=== PATIENT | male | born 1960 | race Caucasian/White ===

== ENCOUNTER 2016-11-21 14:45 | Emergency (ER) | payer MEDICARE, MEDICAID ==
[~2016-11-21] VITALS: Ht 167.6 cm; Wt 73.0 kg
[~2016-11-21 14:45] MED LIST: ARIP20TA2; ASPI-1159; COG2; DEPAK2 PO; DES150; DIGO250T81; ERGO400C; FOLI-43; GLIP5TAB12; HAL2; LORA2TAB95; TEMA30CA5; [UNRECOGNIZED DRUG - CODE]; [UNRECOGNIZED DRUG - OTHER]; [UNRECOGNIZED DRUG - OTHER]
[2016-11-21 14:52] VITALS: BP 148/61
== END 2016-11-21 19:16 | disposition left against medical advice (07) ==
LOC: ER 18:50
DX: Z53.21 Procedure and treatment not carried out due to patient leaving prior to being seen by health care provider (principal)
CPT/HCPCS: 82962

== ENCOUNTER 2019-10-11 16:32 | Inpatient (IN) | payer MEDICARE, MEDICAID ==
[~2019-10-11] VITALS: Ht 167.6 cm; Wt 59.5 kg
[~2019-10-11 16:32] MED LIST changes: -ARIP20TA2; +ARIP20TA2 PO; -ASPI-1159; +ASPI-1497 PO; -COG2; +COG2 PO; -DES150; +DES150 PO; -DIGO250T81; -ERGO400C; +ERGO400C PO; -FOLI-43; +FOLI-43 PO; -HAL2; +HALO2TAB2 PO; -TEMA30CA5; +TEMA30CA5 PO; +[UNRECOGNIZED DRUG - CODE]
[2019-10-11] MEDS ORDERED: SODIUM CHLORIDE 0.9% 1000ML BAG (SEPSIS BOLUS) IV ONE (17:15)
[2019-10-11 17:34] LABS: BASOPHILS % 0.2 % (0.0-2.0); EOSINOPHILS % 0.2 % (0.0-5.0); HEMOGLOBIN. 13.6 g/dL (14.0-18.0); LYMPHOCYTES % 8.6 % (20.0-50.0); MEAN CORPUSCULAR HEMOGLOBIN 30.4 pg (28.0-32.0); MEAN CORPUSCULAR VOLUME 89.6 fL (80.0-94.0); MEAN PLATELET VOLUME 9.3 fl (7.4-10.4); MONOCYTES % 7.2 % (2.0-8.0); NEUTROPHILS % 83.8 % (40.0-76.0); PLATELET 115 x1000/uL (130-400); RED BLOOD CELL COUNT 4.46 mill/uL (4.7-6.1); RED CELL DISTRIBUTION WIDTH 14.7 % (11.6-14.6)
[2019-10-11 17:40] LABS: CHLORIDE 97 mEq/L (98-107)
[2019-10-11 17:50] LABS: INR 1.1; PROTHROMBIN TIME 11.2 sec (9.6-11.0)
[2019-10-11 19:09] LABS: CLARITY URINE CLEAR (CLEAR); COLOR URINE YELLOW (YELLOW); KETONES URINE NEGATIVE (NEGATIVE); LEUKOCYTE ESTERASE URINE NEGATIVE (NEGATIVE); NITRITE URINE NEGATIVE (NEGATIVE); OCCULT BLOOD URINE NEGATIVE (NEGATIVE); PROTEIN URINE NEGATIVE (NEGATIVE); SPECIFIC GRAVITY URINE 1.008 (1.005-1.030); UROBILINOGEN URINE 0.2 E.U./dL (0.2-1.0)
[2019-10-11 22:00] VITALS: BP 160/81
[2019-10-12] VITALS: BP 133/68
[2019-10-12] MEDS ORDERED: DIVA250T4 PO (00:48)
[2019-10-12] MEDS ORDERED: DIVA500T3 PO (00:48)
[2019-10-12] MEDS ORDERED: ATOR10TA69 PO (01:00)
[2019-10-12] MEDS ORDERED: DEPER5 PO (01:00)
[2019-10-12] MEDS ORDERED: HYDR50SY PO (01:00)
[2019-10-12] MEDS ORDERED: LURA120T PO (01:00)
[2019-10-12] MEDS ORDERED: SITA1TBM4 PO (01:00)
[2019-10-12] MEDS ORDERED: ERGO400T7 PO (01:00)
[2019-10-12] MEDS ORDERED: EMPA10TA PO (01:00)
[2019-10-12 04:33] VITALS: BP 142/74
[2019-10-12 06:46] LABS: METHADONE URINE SCREEN NEGATIVE (NEGATIVE); OPIATES URINE SCREEN NEGATIVE (NEGATIVE)
[2019-10-12 06:47] LABS: *AMPHETAMINES SCREEN URINE NEGATIVE (NEGATIVE); *BARBITURATES SCREEN URINE NEGATIVE (NEGATIVE); *BENZODIAZEPINES SCREEN URINE NEGATIVE (NEGATIVE); CANNABINOID URINE SCREEN NEGATIVE (NEGATIVE); PHENCYCLIDINE URINE SCREEN NEGATIVE (NEGATIVE)
[2019-10-12 06:54] LABS: *COCAINE SCREEN URINE NEGATIVE (NEGATIVE)
[2019-10-12 07:30] LABS: HEMATOCRIT 41.4 % (42.0-52.0); HEMOGLOBIN 14.1 g/dL (14.0-18.0); MEAN CORPUSCULAR HEMOGLOBIN 30.6 pg (28.0-32.0); MEAN CORPUSCULAR VOLUME 89.6 fL (80.0-94.0); PLATELET 129 x1000/uL (130-400); RED BLOOD CELL COUNT 4.63 mill/uL (4.7-6.1); RED CELL DISTRIBUTION WIDTH 15.1 % (11.6-14.6)
[2019-10-12 07:35] LABS: CHLORIDE 99 mEq/L (98-107)
[2019-10-12 07:46] LABS: LDL CHOLESTEROL 47 mg/dL (5-100)
[2019-10-12 07:48] LABS: HDL CHOLESTEROL 52 mg/dL (40-59)
[2019-10-12 08:00] VITALS: BP 144/76
[2019-10-12] MEDS: LATUDA 80MG PO SCH ×3 (08:45→18:19)
[2019-10-12] MEDS: JANUMET PO SCH ×3 (08:45→18:19)
[2019-10-12] MEDS ORDERED: DIGOXIN 250MCG TABLET PO SCH (09:00)
[2019-10-12] MEDS: ASPIRIN 81MG EC TABLET PO SCH (10:15)
[2019-10-12] MEDS: DIVALPROEX SODIUM 500MG DR TABLET PO SCH ×2 (10:15→18:19)
[2019-10-12] MEDS: DIVALPROEX SODIUM 250MG DR TABLET PO SCH ×3 (10:15→18:18)
[2019-10-12] MEDS: CHOLECALCIFEROL (D3) 1000 UNIT TABLET PO SCH (10:15)
[2019-10-12] MEDS: FOLIC ACID 1MG TABLET PO SCH (10:15)
[2019-10-12] MEDS: HYDROXYZINE 25MG TABLET PO PRN ×2 (10:15→18:18)
[2019-10-12] MEDS: GLIPIZIDE 5MG TABLET PO SCH (10:20)
[2019-10-12 12:00] VITALS: BP 137/74
[2019-10-12] MEDS: BENZTROPINE MESYLATE 2MG TABLET PO SCH ×2 (12:29→18:19)
[2019-10-12] MEDS ORDERED: LORAZEPAM 2MG/ML CPJ IV NR (16:27)
[2019-10-12] MEDS ORDERED: POLYETHYLENE GLYCOL 3350 (17GM) 1 DOSE PACK PO SCH (16:30)
[2019-10-12] MEDS ORDERED: LORAZEPAM 1MG TABLET PO PRN ×2 (18:30→18:45)
[2019-10-12 20:00] VITALS: BP 119/71
[2019-10-12] MEDS ORDERED: ATORVASTATIN CALCIUM 10MG TABLET PO SCH (21:00)
[2019-10-12] MEDS ORDERED: TRAZODONE HCL 50MG TABLET PO SCH (21:00)
[2019-10-12] MEDS ORDERED: ARIPIPRAZOLE 5MG TABLET PO SCH (21:00)
[2019-10-12] MEDS ORDERED: TEMAZEPAM 15MG CAPSULE PO PRN (21:00)
[2019-10-12] MEDS ORDERED: DIVALPROEX SODIUM 500MG ER TABLET PO SCH (21:00)
[2019-10-13] VITALS: BP 130/78
[2019-10-13 04:00] VITALS: BP 127/74
[2019-10-13 08:00] VITALS: BP 139/74
[2019-10-13] MEDS: CHOLECALCIFEROL (D3) 1000 UNIT TABLET PO SCH (08:46)
[2019-10-13] MEDS: BENZTROPINE MESYLATE 2MG TABLET PO SCH ×2 (08:46→18:04)
[2019-10-13] MEDS: FOLIC ACID 1MG TABLET PO SCH (08:46)
[2019-10-13] MEDS: GLIPIZIDE 5MG TABLET PO SCH (08:46)
[2019-10-13] MEDS: DIVALPROEX SODIUM 250MG DR TABLET PO SCH ×3 (08:46→18:04)
[2019-10-13] MEDS: ASPIRIN 81MG EC TABLET PO SCH (08:46)
[2019-10-13] MEDS: DIVALPROEX SODIUM 500MG DR TABLET PO SCH ×2 (08:48→18:04)
[2019-10-13] MEDS: LATUDA 80MG PO SCH ×2 (08:49→18:04)
[2019-10-13] MEDS: JANUMET PO SCH ×2 (08:49→18:04)
[2019-10-13] MEDS ORDERED: JARDIANCE 10MG PO SCH (09:00)
[2019-10-13] MEDS ORDERED: ONDANSETRON HCL 4MG/2ML INJ IV PRN (10:15)
[2019-10-13 12:00] VITALS: BP 138/74
[2019-10-13] MEDS ORDERED: TAMSULOSIN HCL 0.4MG SR CAPSULE PO SCH (12:45)
[2019-10-13] MEDS ORDERED: TAMS-11 PO (13:17)
[2019-10-13 16:00] VITALS: BP 130/78
[2019-10-13 16:20] VITALS: BP 130/78
[2019-10-13 17:08] LABS: HEPATITIS B SURFACE ANTIGEN NEGATIVE
[2019-10-13 17:38] LABS: HEPATITIS A AB IGM NEGATIVE (NEGATIVE)
[2019-10-13] MEDS ORDERED: LORAZEPAM 1MG TABLET PO SCH (22:00)
== END 2019-10-13 19:05 | disposition home or self-care (01) | DRG 92 ==
LOC: ER 16:32 → EDBEDREQ 17:18 → 6WST 19:01 → EDBEDREQ 19:03 → EDBEDREQSVC 19:03 → ENRESERV 21:36
PROVIDERS: ADMIT Internal Medicine; ATTEND Internal Medicine
DX: G24.09 Other drug induced dystonia (principal); F73 Profound intellectual disabilities; K52.9 Noninfective gastroenteritis and colitis, unspecified; E11.65 Type 2 diabetes mellitus with hyperglycemia; F20.9 Schizophrenia, unspecified; F31.9 Bipolar disorder, unspecified; N40.0 Benign prostatic hyperplasia without lower urinary tract symptoms; K75.9 Inflammatory liver disease, unspecified; K76.0 Fatty (change of) liver, not elsewhere classified; D69.59 Other secondary thrombocytopenia; G40.909 Epilepsy, unspecified, not intractable, without status epilepticus; I10 Essential (primary) hypertension; K59.00 Constipation, unspecified; N28.1 Cyst of kidney, acquired; N32.89 Other specified disorders of bladder; R32 Unspecified urinary incontinence; T50.995A Adverse effect of other drugs, medicaments and biological substances, initial encounter; Y92.89 Other specified places as the place of occurrence of the external cause
CPT/HCPCS: 36415; 70551; 71045; 74176; 76700; 80053; 80061; 80076; 80165; 80305; 81003; 82140; 82390; 82962; 83036; 83605; 83735; 84145; 84484; 85025; 85027; 86705; 86709; 86803; 87340; 93005; 99291; J2060; J2405; J7030

== ENCOUNTER 2022-03-08 12:18 | Inpatient (IN) | payer MEDICARE, MEDICAID ==
[~2022-03-08] VITALS: Ht 165.1 cm; Wt 68.6 kg
[~2022-03-08 12:18] MED LIST changes: +ATOR10TA69 PO; -DEPAK2 PO; +DEPER5 PO; +DIVA250T4 PO; +DIVA500T3 PO; +EMPA10TA PO; +ERGO400T7 PO; +HYDR50SY PO; -LORA2TAB95; +LURA120T PO; +SITA1TBM4 PO; +TAMS-11 PO; -[UNRECOGNIZED DRUG - CODE]; -[UNRECOGNIZED DRUG - OTHER]; -[UNRECOGNIZED DRUG - OTHER]
[2022-03-08 16:02] LABS: HEMATOCRIT. 44.3 % (42.0-52.0); HEMOGLOBIN. 14.8 g/dL (14.0-18.0); PLATELET 130 x1000/uL (130-400); RED CELL DISTRIBUTION WIDTH 14.6 % (11.6-14.6)
[2022-03-08 16:13] LABS: CHLORIDE 98 mEq/L (98-107)
[2022-03-08 16:29] LABS: ETHANOL BLOOD < 10 mg/dL
[2022-03-08 16:36] LABS: CLARITY URINE CLEAR (CLEAR); COLOR URINE YELLOW (YELLOW); KETONES URINE 4+ (NEGATIVE); LEUKOCYTE ESTERASE URINE NEGATIVE (NEGATIVE); NITRITE URINE NEGATIVE (NEGATIVE); OCCULT BLOOD URINE NEGATIVE (NEGATIVE); PROTEIN URINE NEGATIVE (NEGATIVE); SPECIFIC GRAVITY URINE 1.039 (1.005-1.030)
[2022-03-08] MEDS ORDERED: SODIUM CHLORIDE 0.9% 1,000 ML IV ONE (16:45)
[2022-03-08 17:35] LABS: PLATELET ESTIMATE NORMAL
[2022-03-08] MEDS ORDERED: LORAZEPAM 2MG/ML CPJ IV ONE (18:00)
[2022-03-08] MEDS ORDERED: AZITHROMYCIN 500 MG TABLET PO ONE (18:45)
[2022-03-08] MEDS ORDERED: CEFTRIAXONE 1 G PREMIX 50 ML IV ONE (21:45)
[2022-03-09] MEDS ORDERED: ONDANSETRON HCL 4MG/2ML INJ IV PRN (01:45)
[2022-03-09] MEDS ORDERED: DEXTROSE 50% WATER 50ML SYRINGE IV PRN (01:45)
[2022-03-09] MEDS ORDERED: NA PHOS,M-B/NA PHOS,DI-BA ENEMA 118ML PR PRN (01:45)
[2022-03-09] MEDS ORDERED: MAGNESIUM/ALUMINUM HYDROXIDE/SIMETHICONE 30ML UDC PO PRN (01:45)
[2022-03-09] MEDS ORDERED: CLONIDINE 0.1MG TABLET PO PRN (01:45)
[2022-03-09] MEDS ORDERED: DIPHENHYDRAMINE 50MG/ML VIAL IV PRN (01:45)
[2022-03-09] MEDS ORDERED: HYDROCODONE/ACETAMINOPHEN 5/325MG TABLET PO PRN (01:45)
[2022-03-09] MEDS ORDERED: SODIUM CHLORIDE 0.9% 1,000 ML IV ONE (01:45)
[2022-03-09] MEDS ORDERED: LORAZEPAM 0.5MG TABLET PO PRN (02:15)
[2022-03-09 02:58] LABS: T4 FREE 0.93 ng/dL (0.76-1.46)
[2022-03-09] MEDS: ASPIRIN 81MG TABLET PO SCH (04:30)
[2022-03-09] MEDS: HALOPERIDOL 5MG TABLET PO SCH (04:30)
[2022-03-09] MEDS: INSULIN LISPRO 100 UNITS/ML SUBCUT SCH ×4 (08:20→21:37)
[2022-03-09] MEDS: BLOOD SUGAR DIAGNOSTIC STRIP TEST SCH ×4 (09:00→21:00)
[2022-03-09 09:40] VITALS: BP 127/73
[2022-03-09] MEDS ORDERED: PANT40TA51 PO (10:25)
[2022-03-09] MEDS ORDERED: AM250 PO (10:25)
[2022-03-09] MEDS ORDERED: CLAR-44 MT (10:25)
[2022-03-09] MEDS: PANTOPRAZOLE 40MG DR TABLET PO SCH ×2 (11:32→21:36)
[2022-03-09] MEDS: TAMSULOSIN HCL 0.4MG SR CAPSULE PO SCH (11:32)
[2022-03-09] MEDS: ENOXAPARIN 40MG/0.4ML SYR SUBCUT SCH (11:32)
[2022-03-09 12:00] VITALS: BP 140/68
[2022-03-09 16:00] VITALS: BP 138/68
[2022-03-09] MEDS ORDERED: ALBUTEROL 6.7GM HFA INHALER ORI PRN (16:15)
[2022-03-09 20:00] VITALS: BP 132/75
[2022-03-09] MEDS: GUAIFENESIN 600MG ER TABLET PO SCH (21:00)
[2022-03-09] MEDS ORDERED: CEFTRIAXONE 1 G PREMIX 50 ML IV SCH (21:00)
[2022-03-09] MEDS ORDERED: CEFTRIAXONE 1,000 MG in DEXTROSE 5% WATER 50 ML IV SCH (21:00)
[2022-03-09] MEDS: AZITHROMYCIN 250 MG TABLET PO SCH (21:35)
[2022-03-09] MEDS: ATORVASTATIN CALCIUM 10MG TABLET PO SCH (21:35)
[2022-03-09] MEDS: CEFTRIAXONE 1,000 MG in DEXTROSE 5% WATER 50 ML IV SCH (22:02)
[2022-03-10] VITALS: BP 141/77
[2022-03-10] MEDS: ASPIRIN 81MG TABLET PO SCH (02:27)
[2022-03-10] MEDS: HALOPERIDOL 5MG TABLET PO SCH (02:27)
[2022-03-10 04:00] VITALS: BP 147/82
[2022-03-10] MEDS: PANTOPRAZOLE 40MG DR TABLET PO SCH ×2 (05:42→20:49)
[2022-03-10] MEDS: BLOOD SUGAR DIAGNOSTIC STRIP TEST SCH ×4 (05:53→20:49)
[2022-03-10] MEDS: INSULIN LISPRO 100 UNITS/ML SUBCUT SCH ×4 (06:10→20:49)
[2022-03-10 07:07] LABS: BASOPHILS % 0.3 % (0.0-2.0); HEMATOCRIT. 40.8 % (42.0-52.0); HEMOGLOBIN. 13.5 g/dL (14.0-18.0); LYMPHOCYTES % 18.1 % (20.0-50.0); MEAN CORPUSCULAR HEMOGLOBIN 28.8 pg (28.0-32.0); MEAN CORPUSCULAR VOLUME 86.9 fL (80.0-94.0); MEAN PLATELET VOLUME 9.2 fl (7.4-10.4); MONOCYTES % 8.4 % (2.0-8.0); NEUTROPHILS % 73.2 % (40.0-76.0); PLATELET 114 x1000/uL (130-400)
[2022-03-10 07:42] LABS: CHLORIDE 102 mEq/L (98-107)
[2022-03-10 08:03] VITALS: BP 112/63
[2022-03-10] MEDS: TAMSULOSIN HCL 0.4MG SR CAPSULE PO SCH (09:00)
[2022-03-10] MEDS: GUAIFENESIN 600MG ER TABLET PO SCH ×2 (09:00→20:49)
[2022-03-10] MEDS: ENOXAPARIN 40MG/0.4ML SYR SUBCUT SCH (09:00)
[2022-03-10] MEDS: DEXT 5%/0.45% NACL 1000ML 1,000 ML IV SCH (10:23)
[2022-03-10 12:25] VITALS: BP 150/75
[2022-03-10] MEDS ORDERED: NALOXONE HCL 0.4MG/ML VIAL IV PRN (15:15)
[2022-03-10 16:20] VITALS: BP 146/72
[2022-03-10 20:00] VITALS: BP 144/72
[2022-03-10] MEDS: CEFTRIAXONE 1,000 MG in DEXTROSE 5% WATER 50 ML IV SCH (20:49)
[2022-03-10] MEDS: ATORVASTATIN CALCIUM 10MG TABLET PO SCH (20:49)
[2022-03-10] MEDS: AZITHROMYCIN 250 MG TABLET PO SCH (20:49)
[2022-03-11] VITALS: BP 156/78
[2022-03-11] MEDS: HALOPERIDOL 5MG TABLET PO SCH (01:07)
[2022-03-11 04:00] VITALS: BP 130/83
[2022-03-11] MEDS: DEXT 5%/0.45% NACL 1000ML 1,000 ML IV SCH ×2 (06:10→14:36)
[2022-03-11] MEDS: PANTOPRAZOLE 40MG DR TABLET PO SCH ×2 (06:11→20:14)
[2022-03-11] MEDS: INSULIN LISPRO 100 UNITS/ML SUBCUT SCH ×4 (06:11→21:23)
[2022-03-11] MEDS: GUAIFENESIN 200MG/10ML SUGAR FREE UDC PO PRN (06:11)
[2022-03-11] MEDS: BLOOD SUGAR DIAGNOSTIC STRIP TEST SCH ×4 (06:11→21:14)
[2022-03-11 08:00] VITALS: BP 143/58
[2022-03-11] MEDS: ASPIRIN 81MG TABLET PO SCH (09:48)
[2022-03-11] MEDS: ENOXAPARIN 40MG/0.4ML SYR SUBCUT SCH (09:48)
[2022-03-11] MEDS: GUAIFENESIN 600MG ER TABLET PO SCH ×2 (09:48→20:14)
[2022-03-11] MEDS: TAMSULOSIN HCL 0.4MG SR CAPSULE PO SCH (09:56)
[2022-03-11 12:00] VITALS: BP 139/63
[2022-03-11 16:00] VITALS: BP 146/77
[2022-03-11] MEDS: ATORVASTATIN CALCIUM 10MG TABLET PO SCH (20:14)
[2022-03-11] MEDS: AZITHROMYCIN 250 MG TABLET PO SCH (20:14)
[2022-03-11] MEDS: HYDRALAZINE 20MG/ML VIAL IV PRN (20:14)
[2022-03-11] MEDS: ACETAMINOPHEN 325MG TABLET PO PRN (20:15)
[2022-03-11] MEDS: CEFTRIAXONE 1,000 MG in DEXTROSE 5% WATER 50 ML IV SCH (20:18)
[2022-03-11 20:23] VITALS: BP 170/98
[2022-03-12] VITALS: BP 120/59
[2022-03-12 04:00] VITALS: BP 154/85
[2022-03-12] MEDS: DEXT 5%/0.45% NACL 1000ML 1,000 ML IV SCH ×2 (06:04→20:37)
[2022-03-12] MEDS: PANTOPRAZOLE 40MG DR TABLET PO SCH ×2 (06:04→21:25)
[2022-03-12] MEDS: BLOOD SUGAR DIAGNOSTIC STRIP TEST SCH ×4 (06:15→21:26)
[2022-03-12] MEDS: INSULIN LISPRO 100 UNITS/ML SUBCUT SCH ×4 (06:25→21:29)
[2022-03-12 08:00] VITALS: BP 139/85
[2022-03-12] MEDS: ENOXAPARIN 40MG/0.4ML SYR SUBCUT SCH (08:38)
[2022-03-12] MEDS: TAMSULOSIN HCL 0.4MG SR CAPSULE PO SCH (08:38)
[2022-03-12] MEDS: GUAIFENESIN 600MG ER TABLET PO SCH ×2 (08:38→21:25)
[2022-03-12] MEDS: ASPIRIN 81MG TABLET PO SCH (08:38)
[2022-03-12 12:00] VITALS: BP 154/77
[2022-03-12 16:00] VITALS: BP 147/77
[2022-03-12 20:00] VITALS: BP 148/76
[2022-03-12] MEDS: CEFTRIAXONE 1,000 MG in DEXTROSE 5% WATER 50 ML IV SCH (20:36)
[2022-03-12] MEDS: ATORVASTATIN CALCIUM 10MG TABLET PO SCH (21:25)
[2022-03-12] MEDS: AZITHROMYCIN 250 MG TABLET PO SCH (21:25)
[2022-03-12] MEDS: ACETAMINOPHEN 325MG TABLET PO PRN (22:13)
[2022-03-13] VITALS: BP 145/79
[2022-03-13 04:00] VITALS: BP 174/84
[2022-03-13] MEDS: PANTOPRAZOLE 40MG DR TABLET PO SCH (05:18)
[2022-03-13] MEDS: HYDRALAZINE 20MG/ML VIAL IV PRN (05:18)
[2022-03-13] MEDS: BLOOD SUGAR DIAGNOSTIC STRIP TEST SCH ×4 (06:03→21:00)
[2022-03-13] MEDS: INSULIN LISPRO 100 UNITS/ML SUBCUT SCH ×4 (06:06→21:00)
[2022-03-13 08:00] VITALS: BP 133/91
[2022-03-13 08:16] LABS: INR 1.1; PROTHROMBIN TIME 11.8 sec (9.6-11.0)
[2022-03-13 08:21] LABS: HEMATOCRIT. 40.6 % (42.0-52.0); HEMOGLOBIN. 13.8 g/dL (14.0-18.0); MEAN CORPUSCULAR HEMOGLOBIN 28.7 pg (28.0-32.0); MEAN CORPUSCULAR VOLUME 84.3 fL (80.0-94.0); MEAN PLATELET VOLUME 8.6 fl (7.4-10.4); PLATELET 178 x1000/uL (130-400); RED BLOOD CELL COUNT 4.82 mill/uL (4.7-6.1); RED CELL DISTRIBUTION WIDTH 14.1 % (11.6-14.6)
[2022-03-13 08:37] LABS: CHLORIDE 102 mEq/L (98-107)
[2022-03-13] MEDS: ENOXAPARIN 40MG/0.4ML SYR SUBCUT SCH (09:07)
[2022-03-13] MEDS: TAMSULOSIN HCL 0.4MG SR CAPSULE PO SCH (09:08)
[2022-03-13] MEDS: ASPIRIN 81MG TABLET PO SCH (09:08)
[2022-03-13] MEDS: GUAIFENESIN 600MG ER TABLET PO SCH ×2 (09:08→21:09)
[2022-03-13] MEDS: GUAIFENESIN 200MG/10ML SUGAR FREE UDC PO PRN (09:08)
[2022-03-13] MEDS: DEXT 5%/0.45% NACL 1000ML 1,000 ML IV SCH ×2 (09:09→23:48)
[2022-03-13 12:00] VITALS: BP 151/73
[2022-03-13] MEDS ORDERED: POTASSIUM CHLORIDE INJ 40 MEQ in DEXT 5% WATER 250 ML IV ONE (12:00)
[2022-03-13 16:00] VITALS: BP 140/82
[2022-03-13 20:00] VITALS: BP 158/82
[2022-03-13] MEDS: AZITHROMYCIN 250 MG TABLET PO SCH (21:09)
[2022-03-13] MEDS: ATORVASTATIN CALCIUM 10MG TABLET PO SCH (21:09)
[2022-03-13] MEDS: CEFTRIAXONE 1,000 MG in DEXTROSE 5% WATER 50 ML IV SCH (21:09)
[2022-03-13] MEDS: FAMOTIDINE 20MG TABLET PO SCH (21:10)
[2022-03-14] VITALS (21 sets, daily range): BP systolic 132–162; BP diastolic 60–102
[2022-03-14 04:28] LABS: PLATELET ESTIMATE NORMAL
[2022-03-14] MEDS: INSULIN LISPRO 100 UNITS/ML SUBCUT SCH ×4 (06:11→21:46)
[2022-03-14] MEDS: BLOOD SUGAR DIAGNOSTIC STRIP TEST SCH ×4 (06:14→21:48)
[2022-03-14 07:24] LABS: HEMOGLOBIN. 13.7 g/dL (14.0-18.0); MEAN CORPUSCULAR HEMOGLOBIN 28.6 pg (28.0-32.0); MEAN CORPUSCULAR VOLUME 83.5 fL (80.0-94.0); MEAN PLATELET VOLUME 8.2 fl (7.4-10.4); PLATELET 210 x1000/uL (130-400); RED BLOOD CELL COUNT 4.78 mill/uL (4.7-6.1)
[2022-03-14 07:31] LABS: INR 1.1; PROTHROMBIN TIME 11.4 sec (9.6-11.0)
[2022-03-14 07:57] LABS: CHLORIDE 100 mEq/L (98-107)
[2022-03-14] MEDS: ASPIRIN 81MG TABLET PO SCH (09:51)
[2022-03-14] MEDS: FAMOTIDINE 20MG TABLET PO SCH ×2 (09:51→21:44)
[2022-03-14] MEDS: GUAIFENESIN 200MG/10ML SUGAR FREE UDC NG SCH ×4 (09:51→21:44)
[2022-03-14] MEDS: TAMSULOSIN HCL 0.4MG SR CAPSULE PO SCH (09:52)
[2022-03-14] MEDS: ENOXAPARIN 40MG/0.4ML SYR SUBCUT SCH (09:53)
[2022-03-14] MEDS ORDERED: POTASSIUM CHLORIDE INJ 40 MEQ in DEXT 5% WATER 250 ML IV ONE (14:00)
[2022-03-14] MEDS: DEXT 5%/0.45% NACL 1000ML 1,000 ML IV SCH ×2 (14:49→20:23)
[2022-03-14] MEDS: KCL 20MEQ/100ML X 2 FOR TOTAL KCL 40MEQ/200ML IV SCH ×2 (14:57→22:42)
[2022-03-14] MEDS: HYDRALAZINE 20MG/ML VIAL IV PRN ×2 (18:01→21:02)
[2022-03-14] MEDS ORDERED: LORAZEPAM 2MG/ML CPJ ONE (18:17)
[2022-03-14] MEDS ORDERED: ADENOSINE 3 MG/ML 2ML VIAL IV NR ×2 (18:30)
[2022-03-14] MEDS ORDERED: LORAZEPAM 2MG/ML CPJ IV NR (18:30)
[2022-03-14] MEDS ORDERED: MAGNESIUM 2 G PREMIX 50 ML IV NR (19:30)
[2022-03-14] MEDS: AZITHROMYCIN 250 MG TABLET PO SCH (21:00)
[2022-03-14] MEDS: DILTIAZEM HCL 125 MG in DEXT 5% WATER 100 ML IV PRN (21:29)
[2022-03-14] MEDS: ATORVASTATIN CALCIUM 10MG TABLET PO SCH (21:48)
[2022-03-14] MEDS: ACETAMINOPHEN 325MG TABLET PO PRN (22:21)
[2022-03-14] MEDS: LEVETIRACETAM 1,000 MG in SODIUM CHLORIDE 0.9% 100 ML IV SCH (23:03)
[2022-03-15] VITALS (63 sets, daily range): BP systolic 94–145; BP diastolic 50–87
[2022-03-15] MEDS: GUAIFENESIN 200MG/10ML SUGAR FREE UDC NG SCH ×6 (01:52→21:29)
[2022-03-15 05:22] LABS: HEMATOCRIT. 40.7 % (42.0-52.0); HEMOGLOBIN. 13.9 g/dL (14.0-18.0); MEAN CORPUSCULAR HEMOGLOBIN 28.5 pg (28.0-32.0); MEAN CORPUSCULAR VOLUME 83.8 fL (80.0-94.0); MEAN PLATELET VOLUME 8.5 fl (7.4-10.4); PLATELET 244 x1000/uL (130-400); RED BLOOD CELL COUNT 4.86 mill/uL (4.7-6.1)
[2022-03-15 05:31] LABS: CHLORIDE 105 mEq/L (98-107)
[2022-03-15] MEDS: LORAZEPAM 2MG/ML CPJ IV PRN ×2 (05:33→20:56)
[2022-03-15] MEDS: BLOOD SUGAR DIAGNOSTIC STRIP TEST SCH ×4 (05:33→21:00)
[2022-03-15 05:38] LABS: PHOSPHORUS 3.1 mg/dL (2.5-4.9)
[2022-03-15 05:46] LABS: PROTHROMBIN TIME 11.2 sec (9.6-11.0)
[2022-03-15] MEDS: INSULIN LISPRO 100 UNITS/ML SUBCUT SCH ×4 (05:49→21:46)
[2022-03-15] MEDS ORDERED: POTASSIUM CHLORIDE INJ 40 MEQ in DEXT 5% WATER 250 ML IV ONE (07:45)
[2022-03-15] MEDS: PIPERACILLIN/TAZOBACTAM 3.375 G in DEXTROSE 5% WATER 50 ML IV SCH ×2 (08:06→20:56)
[2022-03-15] MEDS: TAMSULOSIN HCL 0.4MG SR CAPSULE PO SCH (08:06)
[2022-03-15] MEDS: ASPIRIN 81MG TABLET PO SCH (08:06)
[2022-03-15] MEDS: FAMOTIDINE 20MG TABLET PO SCH ×2 (08:06→20:56)
[2022-03-15] MEDS: METOPROLOL TARTRATE 25MG TABLET PO SCH (08:07)
[2022-03-15] MEDS: ENOXAPARIN 40MG/0.4ML SYR SUBCUT SCH (08:07)
[2022-03-15] MEDS: LEVETIRACETAM 1,000 MG in SODIUM CHLORIDE 0.9% 100 ML IV SCH ×2 (08:16→20:55)
[2022-03-15 08:19] LABS: T4 FREE 1.6 ng/dL (0.76-1.46)
[2022-03-15 08:59] LABS: BG BASE EXCESS 2.7 mmol/L (-2.0-2.0); BG CARBOXYHEMOGLOBIN 0.9 % (0.5-1.5); BG DEOXYHEMOGLOBIN 1.4 % (0.0-5.0); BG FRACTION INSPIRED OXYGEN 100; BG METHEMOGLOBIN 0.3 % (0.0-1.5); BG OXYGEN SATURATION 98.6 % (92.0-98.5); BG OXYHEMOGLOBIN 97.4 % (94.0-97.0); BG PCO2 40.8 mmHg (35.0-45.0); BG PH 7.439 (7.350-7.450); BG PO2 148.6 mmHg (75.0-100.0); BG SAMPLE SITE RIGHT RADIAL; BG TOTAL HEMOGLOBIN 13.9 g/dL (12.0-18.0); BG VENT MODE MASK - NRB
[2022-03-15] MEDS: KCL 20MEQ/100ML X 2 FOR TOTAL KCL 40MEQ/200ML IV SCH ×2 (10:16→11:38)
[2022-03-15 11:27] LABS: NUCLEATED RED BLOOD CELLS 2 /100 WBC; PLATELET ESTIMATE NORMAL
[2022-03-15] MEDS ORDERED: FUROSEMIDE 20MG/2ML VIAL IVP NR (12:45)
[2022-03-15 14:19] LABS: NUCLEATED RED BLOOD CELLS 2 /100 WBC; PLATELET ESTIMATE NORMAL
[2022-03-15 15:39] LABS: CREATINE KINASE 248 IU/L (39-308); CREATINE KINASE MB FRACTION 3.9 ng/mL (0.5-3.6)
[2022-03-15] MEDS: DEXT 5%/0.45% NACL 1000ML 1,000 ML IV SCH (18:13)
[2022-03-15] MEDS: ATORVASTATIN CALCIUM 10MG TABLET PO SCH (20:56)
[2022-03-16] VITALS (45 sets, daily range): BP systolic 110–146; BP diastolic 62–89
[2022-03-16] MEDS: GUAIFENESIN 200MG/10ML SUGAR FREE UDC NG SCH ×6 (02:10→21:12)
[2022-03-16] MEDS: DEXT 5%/0.45% NACL 1000ML 1,000 ML IV SCH ×2 (05:15→23:11)
[2022-03-16] MEDS: BLOOD SUGAR DIAGNOSTIC STRIP TEST SCH ×4 (05:36→20:43)
[2022-03-16 05:38] LABS: BASOPHILS % 0.1 % (0.0-2.0); EOSINOPHILS % 0.1 % (0.0-5.0); HEMATOCRIT. 40.1 % (42.0-52.0); HEMOGLOBIN. 13.9 g/dL (14.0-18.0); LYMPHOCYTES % 11.9 % (20.0-50.0); MEAN CORPUSCULAR HEMOGLOBIN 29.5 pg (28.0-32.0); MEAN CORPUSCULAR VOLUME 84.9 fL (80.0-94.0); MEAN PLATELET VOLUME 9.2 fl (7.4-10.4); MONOCYTES % 12.3 % (2.0-8.0); NEUTROPHILS % 75.6 % (40.0-76.0); PLATELET 254 x1000/uL (130-400); RED BLOOD CELL COUNT 4.73 mill/uL (4.7-6.1); RED CELL DISTRIBUTION WIDTH 14.1 % (11.6-14.6)
[2022-03-16] MEDS: INSULIN LISPRO 100 UNITS/ML SUBCUT SCH ×4 (06:03→20:43)
[2022-03-16] MEDS: ASPIRIN 81MG TABLET PO SCH (09:20)
[2022-03-16] MEDS: METOPROLOL TARTRATE 25MG TABLET PO SCH (09:20)
[2022-03-16] MEDS: ENOXAPARIN 40MG/0.4ML SYR SUBCUT SCH (09:20)
[2022-03-16] MEDS: FAMOTIDINE 20MG TABLET PO SCH ×2 (09:20→20:41)
[2022-03-16] MEDS: TAMSULOSIN HCL 0.4MG SR CAPSULE PO SCH (09:23)
[2022-03-16] MEDS: LEVETIRACETAM 1,000 MG in SODIUM CHLORIDE 0.9% 100 ML IV SCH (09:52)
[2022-03-16] MEDS: PIPERACILLIN/TAZOBACTAM 3.375 G in DEXTROSE 5% WATER 50 ML IV SCH ×2 (09:52→20:41)
[2022-03-16] MEDS: ACETAMINOPHEN 325MG TABLET PO PRN (13:10)
[2022-03-16] MEDS: DILTIAZEM HCL 125 MG in DEXT 5% WATER 100 ML IV PRN (14:48)
[2022-03-16 16:28] LABS: CREATINE KINASE 152 IU/L (39-308); CREATINE KINASE MB FRACTION 3.2 ng/mL (0.5-3.6)
[2022-03-16] MEDS: LEVETIRACETAM 1,250 MG in SODIUM CHLORIDE 0.9% 100 ML IV SCH (20:41)
[2022-03-16] MEDS: ATORVASTATIN CALCIUM 10MG TABLET PO SCH (20:41)
[2022-03-17] VITALS (80 sets, daily range): BP systolic 103–156; BP diastolic 56–98
[2022-03-17] MEDS: GUAIFENESIN 200MG/10ML SUGAR FREE UDC NG SCH ×6 (01:29→22:15)
[2022-03-17] MEDS: INSULIN LISPRO 100 UNITS/ML SUBCUT SCH ×4 (05:35→22:17)
[2022-03-17] MEDS: BLOOD SUGAR DIAGNOSTIC STRIP TEST SCH ×4 (05:36→21:00)
[2022-03-17 05:39] LABS: BASOPHILS % 0.2 % (0.0-2.0); EOSINOPHILS % 0.2 % (0.0-5.0); HEMATOCRIT. 38.1 % (42.0-52.0); HEMOGLOBIN. 12.9 g/dL (14.0-18.0); LYMPHOCYTES % 8.3 % (20.0-50.0); MEAN CORPUSCULAR HEMOGLOBIN 28.7 pg (28.0-32.0); MEAN CORPUSCULAR VOLUME 84.8 fL (80.0-94.0); MEAN PLATELET VOLUME 9.1 fl (7.4-10.4); MONOCYTES % 6.1 % (2.0-8.0); NEUTROPHILS % 85.2 % (40.0-76.0); PLATELET 231 x1000/uL (130-400)
[2022-03-17] MEDS: ASPIRIN 81MG TABLET PO SCH (08:22)
[2022-03-17] MEDS: METOPROLOL TARTRATE 25MG TABLET PO SCH ×2 (08:22→22:16)
[2022-03-17] MEDS: FAMOTIDINE 20MG TABLET PO SCH ×2 (08:22→22:16)
[2022-03-17] MEDS: ENOXAPARIN 40MG/0.4ML SYR SUBCUT SCH (08:23)
[2022-03-17] MEDS: TAMSULOSIN HCL 0.4MG SR CAPSULE PO SCH (08:23)
[2022-03-17] MEDS: LEVETIRACETAM 1,250 MG in SODIUM CHLORIDE 0.9% 100 ML IV SCH ×2 (08:23→22:16)
[2022-03-17] MEDS: PIPERACILLIN/TAZOBACTAM 3.375 G in DEXTROSE 5% WATER 50 ML IV SCH ×2 (08:23→22:16)
[2022-03-17] MEDS: DEXT 5%/0.45% NACL 1000ML 1,000 ML IV SCH (12:46)
[2022-03-17] MEDS: DILTIAZEM HCL 125 MG in DEXT 5% WATER 100 ML IV PRN (12:48)
[2022-03-17] MEDS: ATORVASTATIN CALCIUM 10MG TABLET PO SCH (22:16)
[2022-03-18] VITALS (77 sets, daily range): BP systolic 105–183; BP diastolic 46–113
[2022-03-18] MEDS: GUAIFENESIN 200MG/10ML SUGAR FREE UDC NG SCH ×6 (01:01→23:16)
[2022-03-18] MEDS: DILTIAZEM HCL 125 MG in DEXT 5% WATER 100 ML IV PRN (01:02)
[2022-03-18] MEDS: DEXT 5%/0.45% NACL 1000ML 1,000 ML IV SCH (03:54)
[2022-03-18] MEDS: BLOOD SUGAR DIAGNOSTIC STRIP TEST SCH ×4 (05:59→23:24)
[2022-03-18] MEDS: INSULIN LISPRO 100 UNITS/ML SUBCUT SCH ×4 (06:01→23:27)
[2022-03-18 06:58] LABS: CHLORIDE 98 mEq/L (98-107)
[2022-03-18 07:05] LABS: HEMATOCRIT. 37.1 % (42.0-52.0); HEMOGLOBIN. 12.5 g/dL (14.0-18.0); MEAN CORPUSCULAR HEMOGLOBIN 28.6 pg (28.0-32.0); MEAN CORPUSCULAR VOLUME 84.9 fL (80.0-94.0); MEAN PLATELET VOLUME 9.3 fl (7.4-10.4); PLATELET 214 x1000/uL (130-400); RED BLOOD CELL COUNT 4.37 mill/uL (4.7-6.1)
[2022-03-18] MEDS: ASPIRIN 81MG TABLET PO SCH (08:47)
[2022-03-18] MEDS: PIPERACILLIN/TAZOBACTAM 3.375 G in DEXTROSE 5% WATER 50 ML IV SCH ×3 (08:47→23:16)
[2022-03-18] MEDS: TAMSULOSIN HCL 0.4MG SR CAPSULE PO SCH (08:47)
[2022-03-18] MEDS: METOPROLOL TARTRATE 25MG TABLET PO SCH ×2 (08:47→20:49)
[2022-03-18] MEDS: FAMOTIDINE 20MG TABLET PO SCH ×2 (08:47→20:49)
[2022-03-18] MEDS: LEVETIRACETAM 1,250 MG in SODIUM CHLORIDE 0.9% 100 ML IV SCH ×2 (08:47→20:51)
[2022-03-18] MEDS: ENOXAPARIN 40MG/0.4ML SYR SUBCUT SCH (08:48)
[2022-03-18] MEDS: ACETAMINOPHEN 650MG/20.3ML UDC PO PRN (09:56)
[2022-03-18] MEDS ORDERED: MAGNESIUM 2 G PREMIX 50 ML IV NR (11:00)
[2022-03-18 12:48] LABS: PLATELET ESTIMATE NORMAL
[2022-03-18] MEDS: LORAZEPAM 2MG/ML CPJ IV PRN ×7 (13:15→22:05)
[2022-03-18] MEDS: IPRATROPIUM/ALBUTEROL 0.5-3(2.5)MG/3ML NEB HHN PRN (15:47)
[2022-03-18 16:03] LABS: CHLORIDE 100 mEq/L (98-107)
[2022-03-18] MEDS ORDERED: VALPROATE SODIUM 250MG/5ML UDC GT NR (18:15)
[2022-03-18] MEDS: ACETAMINOPHEN 325MG TABLET PO PRN (20:48)
[2022-03-18] MEDS: ATORVASTATIN CALCIUM 10MG TABLET PO SCH (20:49)
[2022-03-19] VITALS (78 sets, daily range): BP systolic 84–149; BP diastolic 47–108
[2022-03-19 00:38] LABS: BG BASE EXCESS 8.8 mmol/L (-2.0-2.0); BG CARBOXYHEMOGLOBIN 0.2 % (0.5-1.5); BG DEOXYHEMOGLOBIN 0.9 % (0.0-5.0); BG FRACTION INSPIRED OXYGEN 100; BG HCO3 ACT 32.5 mmol/L (22.0-26.0); BG METHEMOGLOBIN 0.1 % (0.0-1.5); BG OXYGEN SATURATION 99.1 % (92.0-98.5); BG OXYHEMOGLOBIN 98.8 % (94.0-97.0); BG PCO2 41.2 mmHg (35.0-45.0); BG PH 7.515 (7.350-7.450); BG PO2 266.6 mmHg (75.0-100.0); BG SAMPLE SITE RIGHT RADIAL; BG TOTAL HEMOGLOBIN 11.9 g/dL (12.0-18.0); BG VENT MODE MASK - BIPAP
[2022-03-19] MEDS: LORAZEPAM 2MG/ML CPJ IV PRN (01:09)
[2022-03-19] MEDS: GUAIFENESIN 200MG/10ML SUGAR FREE UDC NG SCH ×6 (01:11→21:23)
[2022-03-19] MEDS: PIPERACILLIN/TAZOBACTAM 3.375 G in DEXTROSE 5% WATER 50 ML IV SCH ×3 (05:31→21:22)
[2022-03-19] MEDS: BLOOD SUGAR DIAGNOSTIC STRIP TEST SCH ×4 (05:40→23:50)
[2022-03-19] MEDS: INSULIN LISPRO 100 UNITS/ML SUBCUT SCH ×4 (05:43→23:52)
[2022-03-19] MEDS: METOPROLOL TARTRATE 25MG TABLET PO SCH ×3 (07:42→21:24)
[2022-03-19 08:41] LABS: BG BASE EXCESS 5.5 mmol/L (-2.0-2.0); BG CARBOXYHEMOGLOBIN 0.8 % (0.5-1.5); BG DEOXYHEMOGLOBIN 2.8 % (0.0-5.0); BG FRACTION INSPIRED OXYGEN 100; BG HCO3 ACT 30.5 mmol/L (22.0-26.0); BG METHEMOGLOBIN 0.3 % (0.0-1.5); BG OXYGEN SATURATION 97.2 % (92.0-98.5); BG OXYHEMOGLOBIN 96.1 % (94.0-97.0); BG PCO2 45.8 mmHg (35.0-45.0); BG PH 7.441 (7.350-7.450); BG PO2 94.8 mmHg (75.0-100.0); BG SAMPLE SITE RIGHT RADIAL; BG TOTAL HEMOGLOBIN 13.9 g/dL (12.0-18.0); BG VENT MODE MASK - BIPAP
[2022-03-19 08:44] LABS: HEMATOCRIT. 34.8 % (42.0-52.0); HEMOGLOBIN. 11.4 g/dL (14.0-18.0); MEAN CORPUSCULAR VOLUME 85.5 fL (80.0-94.0); MEAN PLATELET VOLUME 9.7 fl (7.4-10.4); PLATELET 197 x1000/uL (130-400); RED BLOOD CELL COUNT 4.07 mill/uL (4.7-6.1); RED CELL DISTRIBUTION WIDTH 13.9 % (11.6-14.6)
[2022-03-19 08:53] LABS: BG CARBOXYHEMOGLOBIN 0.1 % (0.5-1.5); BG DEOXYHEMOGLOBIN 1.3 % (0.0-5.0); BG FRACTION INSPIRED OXYGEN 100; BG HCO3 ACT 39.1 mmol/L (22.0-26.0); BG METHEMOGLOBIN 0.3 % (0.0-1.5); BG OXYGEN SATURATION 98.7 % (92.0-98.5); BG OXYHEMOGLOBIN 98.3 % (94.0-97.0); BG PCO2 51.8 mmHg (35.0-45.0); BG PH 7.496 (7.350-7.450); BG PO2 156.6 mmHg (75.0-100.0); BG SAMPLE SITE RIGHT RADIAL; BG TOTAL HEMOGLOBIN 11.6 g/dL (12.0-18.0); BG VENT MODE MASK - NRB
[2022-03-19 09:05] LABS: CHLORIDE 104 mEq/L (98-107)
[2022-03-19] MEDS: ASPIRIN 81MG TABLET PO SCH (09:08)
[2022-03-19] MEDS: TAMSULOSIN HCL 0.4MG SR CAPSULE PO SCH (09:08)
[2022-03-19] MEDS: FAMOTIDINE 20MG TABLET PO SCH ×2 (09:08→21:23)
[2022-03-19] MEDS: LEVETIRACETAM 1,250 MG in SODIUM CHLORIDE 0.9% 100 ML IV SCH ×2 (09:09→21:22)
[2022-03-19] MEDS: ENOXAPARIN 40MG/0.4ML SYR SUBCUT SCH (09:09)
[2022-03-19 09:57] LABS: CHLORIDE 103 mEq/L (98-107)
[2022-03-19] MEDS ORDERED: POTASSIUM CHLORIDE 20MEQ TABLET SR PO SCH (11:00)
[2022-03-19] MEDS ORDERED: KCL 10MEQ/50ML PREMIX 50 ML IV SCH (12:00)
[2022-03-19] MEDS: ACETAMINOPHEN 650MG/20.3ML UDC PO PRN (12:14)
[2022-03-19 12:44] LABS: PLATELET ESTIMATE NORMAL
[2022-03-19] MEDS: INSULIN GLARGINE 100 UNITS/ML SUBCUT SCH (13:52)
[2022-03-19 14:27] LABS: CHLORIDE 98 mEq/L (98-107)
[2022-03-19] MEDS: SENNOSIDES 8.6MG TABLET PEG SCH (21:23)
[2022-03-19] MEDS: ATORVASTATIN CALCIUM 10MG TABLET PO SCH (21:23)
[2022-03-19] MEDS: VALPROATE SODIUM 250MG/5ML UDC PO SCH (21:25)
[2022-03-20] VITALS (61 sets, daily range): BP systolic 111–156; BP diastolic 39–95
[2022-03-20] MEDS: GUAIFENESIN 200MG/10ML SUGAR FREE UDC NG SCH ×6 (01:13→21:21)
[2022-03-20 05:17] LABS: CHLORIDE 100 mEq/L (98-107)
[2022-03-20] MEDS: BLOOD SUGAR DIAGNOSTIC STRIP TEST SCH ×3 (05:29→17:36)
[2022-03-20] MEDS: VALPROATE SODIUM 250MG/5ML UDC PO SCH ×3 (05:33→21:21)
[2022-03-20] MEDS: PIPERACILLIN/TAZOBACTAM 3.375 G in DEXTROSE 5% WATER 50 ML IV SCH ×3 (05:33→21:21)
[2022-03-20] MEDS: METOPROLOL TARTRATE 25MG TABLET PO SCH ×3 (05:34→21:22)
[2022-03-20] MEDS: INSULIN LISPRO 100 UNITS/ML SUBCUT SCH ×3 (05:36→17:36)
[2022-03-20] MEDS ORDERED: POTASSIUM CHLORIDE INJ 40 MEQ in DEXT 5% WATER 250 ML IV ONE (08:45)
[2022-03-20] MEDS: DOCUSATE SODIUM SUGAR FREE 100MG/10ML UDC NG SCH (09:14)
[2022-03-20] MEDS: ACETAMINOPHEN 650MG/20.3ML UDC PO PRN (09:14)
[2022-03-20] MEDS: INSULIN GLARGINE 100 UNITS/ML SUBCUT SCH (09:15)
[2022-03-20] MEDS: FAMOTIDINE 20MG TABLET PO SCH ×2 (09:15→21:22)
[2022-03-20] MEDS: TAMSULOSIN HCL 0.4MG SR CAPSULE PO SCH (09:15)
[2022-03-20] MEDS: LEVETIRACETAM 1,250 MG in SODIUM CHLORIDE 0.9% 100 ML IV SCH (09:15)
[2022-03-20] MEDS: ASPIRIN 81MG TABLET PO SCH (09:16)
[2022-03-20] MEDS: ENOXAPARIN 40MG/0.4ML SYR SUBCUT SCH (09:16)
[2022-03-20 09:52] LABS: HEMATOCRIT. 33.7 % (42.0-52.0); HEMOGLOBIN. 11.2 g/dL (14.0-18.0); MEAN CORPUSCULAR HEMOGLOBIN 28.9 pg (28.0-32.0); MEAN CORPUSCULAR VOLUME 86.7 fL (80.0-94.0); MEAN PLATELET VOLUME 9.5 fl (7.4-10.4); PLATELET 171 x1000/uL (130-400); RED BLOOD CELL COUNT 3.89 mill/uL (4.7-6.1); RED CELL DISTRIBUTION WIDTH 14.2 % (11.6-14.6)
[2022-03-20 10:40] LABS: PLATELET ESTIMATE NORMAL
[2022-03-20] MEDS ORDERED: SODIUM CHLORIDE 0.9% 1,000 ML IV ONE (11:00)
[2022-03-20] MEDS: KCL 20MEQ/100ML X 2 FOR TOTAL KCL 40MEQ/200ML IV SCH ×2 (11:12→13:06)
[2022-03-20 16:46] LABS: CHLORIDE 101 mEq/L (98-107)
[2022-03-20] MEDS: LEVETIRACETAM 500MG/5ML CUP PO SCH (21:21)
[2022-03-20] MEDS: SENNOSIDES 8.6MG TABLET PEG SCH (21:23)
[2022-03-20] MEDS: ACETAMINOPHEN 325MG TABLET PO PRN (21:23)
[2022-03-20] MEDS: ATORVASTATIN CALCIUM 10MG TABLET PO SCH (21:23)
[2022-03-21] VITALS (77 sets, daily range): BP systolic 120–172; BP diastolic 54–116
[2022-03-21] MEDS: BLOOD SUGAR DIAGNOSTIC STRIP TEST SCH ×4 (00:05→17:33)
[2022-03-21] MEDS: INSULIN LISPRO 100 UNITS/ML SUBCUT SCH ×4 (00:11→17:34)
[2022-03-21] MEDS: ACETYLCYSTEINE 100MG/ML 10% VIAL 4ML INH SCH (01:01)
[2022-03-21] MEDS: GUAIFENESIN 200MG/10ML SUGAR FREE UDC NG SCH ×6 (01:55→21:25)
[2022-03-21] MEDS: VALPROATE SODIUM 250MG/5ML UDC PO SCH ×3 (05:22→21:24)
[2022-03-21] MEDS: METOPROLOL TARTRATE 25MG TABLET PO SCH ×2 (05:23→13:54)
[2022-03-21] MEDS: DOCUSATE SODIUM SUGAR FREE 100MG/10ML UDC NG SCH (08:16)
[2022-03-21] MEDS: FAMOTIDINE 20MG TABLET PO SCH ×2 (08:16→21:25)
[2022-03-21] MEDS: LEVETIRACETAM 500MG/5ML CUP PO SCH ×2 (08:16→21:24)
[2022-03-21] MEDS: TAMSULOSIN HCL 0.4MG SR CAPSULE PO SCH (08:16)
[2022-03-21] MEDS: ASPIRIN 81MG TABLET PO SCH (08:16)
[2022-03-21] MEDS: ENOXAPARIN 40MG/0.4ML SYR SUBCUT SCH (08:17)
[2022-03-21] MEDS: INSULIN GLARGINE 100 UNITS/ML SUBCUT SCH (10:09)
[2022-03-21] MEDS: IPRATROPIUM/ALBUTEROL 0.5-3(2.5)MG/3ML NEB HHN SCH (20:00)
[2022-03-21] MEDS: ACETAMINOPHEN 325MG TABLET PO PRN (21:24)
[2022-03-21] MEDS: SENNOSIDES 8.6MG TABLET PEG SCH (21:25)
[2022-03-21] MEDS: ATORVASTATIN CALCIUM 10MG TABLET PO SCH (21:25)
[2022-03-21] MEDS: METOPROLOL TARTRATE 100MG TABLET PO SCH (21:25)
[2022-03-22] VITALS (68 sets, daily range): BP systolic 103–161; BP diastolic 36–91
[2022-03-22] MEDS: BLOOD SUGAR DIAGNOSTIC STRIP TEST SCH ×4 (00:24→18:50)
[2022-03-22] MEDS: INSULIN LISPRO 100 UNITS/ML SUBCUT SCH ×4 (00:28→18:12)
[2022-03-22] MEDS: IPRATROPIUM/ALBUTEROL 0.5-3(2.5)MG/3ML NEB HHN SCH ×6 (01:01→20:45)
[2022-03-22] MEDS: GUAIFENESIN 200MG/10ML SUGAR FREE UDC NG SCH ×6 (01:29→21:15)
[2022-03-22] MEDS: DILTIAZEM HCL 125 MG in DEXT 5% WATER 100 ML IV PRN (04:23)
[2022-03-22] MEDS: VALPROATE SODIUM 250MG/5ML UDC PO SCH ×3 (05:21→21:15)
[2022-03-22] MEDS: HYDRALAZINE 20MG/ML VIAL IV PRN (06:15)
[2022-03-22] MEDS: ACETAMINOPHEN 650MG/20.3ML UDC PO PRN (06:22)
[2022-03-22] MEDS: LEVETIRACETAM 500MG/5ML CUP PO SCH ×2 (08:28→21:15)
[2022-03-22] MEDS: DOCUSATE SODIUM SUGAR FREE 100MG/10ML UDC NG SCH (08:41)
[2022-03-22] MEDS: ASPIRIN 81MG TABLET PO SCH (08:48)
[2022-03-22] MEDS: ENOXAPARIN 40MG/0.4ML SYR SUBCUT SCH (08:48)
[2022-03-22] MEDS: METOPROLOL TARTRATE 100MG TABLET PO SCH ×2 (08:48→21:15)
[2022-03-22] MEDS: TAMSULOSIN HCL 0.4MG SR CAPSULE PO SCH (08:48)
[2022-03-22] MEDS: FAMOTIDINE 20MG TABLET PO SCH ×2 (08:49→21:16)
[2022-03-22] MEDS: ACETYLCYSTEINE 100MG/ML 10% VIAL 4ML INH SCH ×2 (09:31→16:56)
[2022-03-22] MEDS: INSULIN GLARGINE 100 UNITS/ML SUBCUT SCH (10:09)
[2022-03-22] MEDS: LORAZEPAM 2MG/ML CPJ IV PRN (17:45)
[2022-03-22] MEDS: ATORVASTATIN CALCIUM 10MG TABLET PO SCH (21:15)
[2022-03-22] MEDS: SENNOSIDES 8.6MG TABLET PEG SCH (21:16)
[2022-03-23] VITALS (48 sets, daily range): BP systolic 103–151; BP diastolic 49–86
[2022-03-23] MEDS: BLOOD SUGAR DIAGNOSTIC STRIP TEST SCH ×5 (00:21→23:35)
[2022-03-23] MEDS: INSULIN LISPRO 100 UNITS/ML SUBCUT SCH ×5 (00:22→23:34)
[2022-03-23] MEDS: LORAZEPAM 2MG/ML CPJ IV PRN ×2 (00:23→22:00)
[2022-03-23] MEDS: ACETYLCYSTEINE 100MG/ML 10% VIAL 4ML INH SCH ×3 (00:39→16:03)
[2022-03-23] MEDS: IPRATROPIUM/ALBUTEROL 0.5-3(2.5)MG/3ML NEB HHN SCH ×4 (00:39→16:04)
[2022-03-23] MEDS: GUAIFENESIN 200MG/10ML SUGAR FREE UDC NG SCH ×6 (02:46→21:16)
[2022-03-23 05:12] LABS: CHLORIDE 103 mEq/L (98-107)
[2022-03-23] MEDS: VALPROATE SODIUM 250MG/5ML UDC PO SCH ×3 (05:37→21:16)
[2022-03-23 06:19] LABS: BASOPHILS % 0.7 % (0.0-2.0); HEMATOCRIT. 30.5 % (42.0-52.0); HEMOGLOBIN. 10.6 g/dL (14.0-18.0); LYMPHOCYTES % 14.2 % (20.0-50.0); MEAN CORPUSCULAR HEMOGLOBIN 31.3 pg (28.0-32.0); MEAN CORPUSCULAR VOLUME 90.3 fL (80.0-94.0); MEAN PLATELET VOLUME 9.8 fl (7.4-10.4); MONOCYTES % 6.9 % (2.0-8.0); NEUTROPHILS % 77.2 % (40.0-76.0); PLATELET 263 x1000/uL (130-400); RED BLOOD CELL COUNT 3.38 mill/uL (4.7-6.1); RED CELL DISTRIBUTION WIDTH 13.6 % (11.6-14.6)
[2022-03-23] MEDS: DOCUSATE SODIUM SUGAR FREE 100MG/10ML UDC NG SCH (09:00)
[2022-03-23] MEDS: ASPIRIN 81MG TABLET PO SCH (09:02)
[2022-03-23] MEDS: TAMSULOSIN HCL 0.4MG SR CAPSULE PO SCH (09:03)
[2022-03-23] MEDS: FAMOTIDINE 20MG TABLET PO SCH ×2 (09:04→21:17)
[2022-03-23] MEDS: METOPROLOL TARTRATE 100MG TABLET PO SCH ×2 (09:04→21:17)
[2022-03-23] MEDS: LEVETIRACETAM 500MG/5ML CUP PO SCH ×2 (09:04→21:17)
[2022-03-23] MEDS: ENOXAPARIN 40MG/0.4ML SYR SUBCUT SCH (09:06)
[2022-03-23] MEDS: INSULIN GLARGINE 100 UNITS/ML SUBCUT SCH ×2 (09:09→23:35)
[2022-03-23] MEDS: ACETAMINOPHEN 650MG/20.3ML UDC PO PRN (14:09)
[2022-03-23] MEDS: SENNOSIDES 8.6MG TABLET PEG SCH (21:00)
[2022-03-23] MEDS: ATORVASTATIN CALCIUM 10MG TABLET PO SCH (21:17)
[2022-03-24] VITALS (41 sets, daily range): BP systolic 127–164; BP diastolic 58–85
[2022-03-24] MEDS: ACETYLCYSTEINE 100MG/ML 10% VIAL 4ML INH SCH ×4 (00:06→16:10)
[2022-03-24] MEDS: IPRATROPIUM/ALBUTEROL 0.5-3(2.5)MG/3ML NEB HHN SCH ×2 (00:06→08:54)
[2022-03-24] MEDS: GUAIFENESIN 200MG/10ML SUGAR FREE UDC NG SCH ×6 (01:59→21:16)
[2022-03-24 05:22] LABS: CHLORIDE 103 mEq/L (98-107)
[2022-03-24] MEDS: BLOOD SUGAR DIAGNOSTIC STRIP TEST SCH ×4 (05:40→23:31)
[2022-03-24] MEDS: VALPROATE SODIUM 250MG/5ML UDC PO SCH ×3 (05:40→21:16)
[2022-03-24] MEDS: INSULIN LISPRO 100 UNITS/ML SUBCUT SCH ×4 (05:41→23:32)
[2022-03-24 05:52] LABS: BASOPHILS % 0.2 % (0.0-2.0); EOSINOPHILS % 1.4 % (0.0-5.0); HEMATOCRIT. 34.3 % (42.0-52.0); HEMOGLOBIN. 11.3 g/dL (14.0-18.0); LYMPHOCYTES % 10.5 % (20.0-50.0); MEAN CORPUSCULAR HEMOGLOBIN 29.6 pg (28.0-32.0); MEAN CORPUSCULAR VOLUME 89.5 fL (80.0-94.0); MEAN PLATELET VOLUME 9.8 fl (7.4-10.4); NEUTROPHILS % 82.9 % (40.0-76.0); RED CELL DISTRIBUTION WIDTH 14.2 % (11.6-14.6)
[2022-03-24 06:05] LABS: PLATELET 298 x1000/uL (130-400); RED BLOOD CELL COUNT 1.78 mill/uL (4.7-6.1)
[2022-03-24] MEDS: DOCUSATE SODIUM SUGAR FREE 100MG/10ML UDC NG SCH (09:00)
[2022-03-24] MEDS: FAMOTIDINE 20MG TABLET PO SCH ×2 (09:59→21:15)
[2022-03-24] MEDS: ASPIRIN 81MG TABLET PO SCH (09:59)
[2022-03-24 10:01] LABS: BG BASE EXCESS 10.2 mmol/L (-2.0-2.0); BG CARBOXYHEMOGLOBIN 0.4 % (0.5-1.5); BG DEOXYHEMOGLOBIN 6.3 % (0.0-5.0); BG FRACTION INSPIRED OXYGEN 60; BG HCO3 ACT 34.7 mmol/L (22.0-26.0); BG METHEMOGLOBIN 0.3 % (0.0-1.5); BG OXYGEN SATURATION 93.7 % (92.0-98.5); BG PCO2 46.3 mmHg (35.0-45.0); BG PH 7.492 (7.350-7.450); BG PO2 65.9 mmHg (75.0-100.0); BG SAMPLE SITE RIGHT RADIAL; BG TOTAL HEMOGLOBIN 11.1 g/dL (12.0-18.0); BG VENT MODE MASK - HHN
[2022-03-24] MEDS: LEVETIRACETAM 500MG/5ML CUP PO SCH ×2 (10:02→21:14)
[2022-03-24] MEDS: TAMSULOSIN HCL 0.4MG SR CAPSULE PO SCH (10:03)
[2022-03-24] MEDS: METOPROLOL TARTRATE 100MG TABLET PO SCH ×2 (10:03→21:14)
[2022-03-24] MEDS: ENOXAPARIN 40MG/0.4ML SYR SUBCUT SCH (10:03)
[2022-03-24] MEDS: INSULIN GLARGINE 100 UNITS/ML SUBCUT SCH ×2 (10:07→21:18)
[2022-03-24] MEDS ORDERED: OXYMETAZOLINE HCL NASAL SPRAY 15ML BOTHNSTRLS PRN (12:00)
[2022-03-24] MEDS: ACETAMINOPHEN 650MG/20.3ML UDC PO PRN ×2 (15:40→21:56)
[2022-03-24] MEDS: ALBUTEROL (0.083%) 2.5MG/3ML NEB HHN SCH (16:10)
[2022-03-24] MEDS ORDERED: NON FORMULARY PATIENT HOME MED XX SCH (17:45)
[2022-03-24] MEDS: GLIPIZIDE 5MG TABLET NG SCH (18:33)
[2022-03-24] MEDS: LORAZEPAM 2MG/ML CPJ IV PRN (18:59)
[2022-03-24] MEDS ORDERED: TRAZODONE HCL 50MG TABLET PO SCH (21:00)
[2022-03-24] MEDS: SENNOSIDES 8.6MG TABLET PEG SCH (21:14)
[2022-03-24] MEDS: ATORVASTATIN CALCIUM 10MG TABLET PO SCH (21:14)
[2022-03-24] MEDS: TRAZODONE 150 MG PO SCH (21:15)
[2022-03-24] MEDS: LATUDA 20MG PO SCH (21:15)
[2022-03-24] MEDS: LATUDA 80MG PO SCH (21:15)
[2022-03-24] MEDS: ARIPIPRAZOLE 30 MG PO SCH (21:15)
[2022-03-25] VITALS (44 sets, daily range): BP systolic 95–160; BP diastolic 44–89
[2022-03-25] MEDS: ALBUTEROL (0.083%) 2.5MG/3ML NEB HHN SCH ×3 (00:56→16:19)
[2022-03-25] MEDS: GUAIFENESIN 200MG/10ML SUGAR FREE UDC NG SCH ×6 (01:19→21:32)
[2022-03-25] MEDS: LORAZEPAM 2MG/ML CPJ IV PRN (01:41)
[2022-03-25 06:00] LABS: CHLORIDE 104 mEq/L (98-107)
[2022-03-25] MEDS: BLOOD SUGAR DIAGNOSTIC STRIP TEST SCH ×4 (06:00→23:48)
[2022-03-25 07:00] LABS: BASOPHILS % 0.7 % (0.0-2.0); EOSINOPHILS % 0.7 % (0.0-5.0); HEMATOCRIT. 30.8 % (42.0-52.0); HEMOGLOBIN. 10.3 g/dL (14.0-18.0); LYMPHOCYTES % 12.2 % (20.0-50.0); MEAN CORPUSCULAR HEMOGLOBIN 29.3 pg (28.0-32.0); MEAN CORPUSCULAR VOLUME 87.2 fL (80.0-94.0); MEAN PLATELET VOLUME 9.8 fl (7.4-10.4); MONOCYTES % 5.9 % (2.0-8.0); NEUTROPHILS % 80.5 % (40.0-76.0); PLATELET 289 x1000/uL (130-400); RED BLOOD CELL COUNT 3.53 mill/uL (4.7-6.1)
[2022-03-25] MEDS: VALPROATE SODIUM 250MG/5ML UDC PO SCH ×3 (07:18→21:32)
[2022-03-25] MEDS: GLIPIZIDE 5MG TABLET NG SCH ×2 (07:18→17:48)
[2022-03-25] MEDS: INSULIN LISPRO 100 UNITS/ML SUBCUT SCH ×4 (07:21→23:53)
[2022-03-25] MEDS: ACETYLCYSTEINE 100MG/ML 10% VIAL 4ML INH SCH ×3 (08:19→16:18)
[2022-03-25] MEDS: FAMOTIDINE 20MG TABLET PO SCH ×2 (08:51→21:32)
[2022-03-25] MEDS: LEVETIRACETAM 500MG/5ML CUP PO SCH ×2 (08:51→21:30)
[2022-03-25] MEDS: ASPIRIN 81MG TABLET PO SCH (08:51)
[2022-03-25] MEDS: TAMSULOSIN HCL 0.4MG SR CAPSULE PO SCH (08:51)
[2022-03-25] MEDS: METOPROLOL TARTRATE 100MG TABLET PO SCH ×2 (08:52→21:31)
[2022-03-25] MEDS: ENOXAPARIN 40MG/0.4ML SYR SUBCUT SCH (08:52)
[2022-03-25] MEDS: BENZTROPINE MESYLATE 1MG TABLET PO SCH ×2 (08:52→17:46)
[2022-03-25] MEDS: DOCUSATE SODIUM SUGAR FREE 100MG/10ML UDC NG SCH (08:53)
[2022-03-25] MEDS: INSULIN GLARGINE 100 UNITS/ML SUBCUT SCH ×2 (09:05→21:33)
[2022-03-25] MEDS: LATUDA 80MG PO SCH ×2 (09:44→21:31)
[2022-03-25] MEDS: NYSTATIN 100,000 UNITS/GM CREAM 15GM TOP SCH ×2 (14:13→16:36)
[2022-03-25] MEDS: MENTHOL/LANOLIN/CALAMINE/ZN OX OINT 71GM TOP SCH ×2 (14:13→16:36)
[2022-03-25] MEDS: ATORVASTATIN CALCIUM 10MG TABLET PO SCH (21:30)
[2022-03-25] MEDS: HALOPERIDOL 5MG TABLET PO SCH (21:30)
[2022-03-25] MEDS: SENNOSIDES 8.6MG TABLET PEG SCH (21:30)
[2022-03-25] MEDS: LATUDA 20MG PO SCH (21:31)
[2022-03-25] MEDS: ARIPIPRAZOLE 30 MG PO SCH (21:31)
[2022-03-25] MEDS: TRAZODONE 150 MG PO SCH (21:32)
[2022-03-25] MEDS: ACETAMINOPHEN 650MG/20.3ML UDC PO PRN (21:32)
[2022-03-26] VITALS (27 sets, daily range): BP systolic 101–148; BP diastolic 45–88
[2022-03-26] MEDS: ACETYLCYSTEINE 100MG/ML 10% VIAL 4ML INH SCH ×2 (00:42→15:13)
[2022-03-26] MEDS: ALBUTEROL (0.083%) 2.5MG/3ML NEB HHN SCH ×3 (00:42→15:05)
[2022-03-26] MEDS: GUAIFENESIN 200MG/10ML SUGAR FREE UDC NG SCH ×6 (01:31→22:11)
[2022-03-26 05:04] LABS: CHLORIDE 105 mEq/L (98-107)
[2022-03-26 05:54] LABS: BASOPHILS % 0.8 % (0.0-2.0); EOSINOPHILS % 0.9 % (0.0-5.0); HEMATOCRIT. 29.7 % (42.0-52.0); HEMOGLOBIN. 9.9 g/dL (14.0-18.0); LYMPHOCYTES % 15.3 % (20.0-50.0); MEAN CORPUSCULAR VOLUME 86.8 fL (80.0-94.0); MEAN PLATELET VOLUME 9.5 fl (7.4-10.4); PLATELET 326 x1000/uL (130-400); RED BLOOD CELL COUNT 3.42 mill/uL (4.7-6.1); RED CELL DISTRIBUTION WIDTH 14.3 % (11.6-14.6)
[2022-03-26] MEDS: BLOOD SUGAR DIAGNOSTIC STRIP TEST SCH ×3 (06:13→17:06)
[2022-03-26] MEDS: VALPROATE SODIUM 250MG/5ML UDC PO SCH ×3 (06:13→22:08)
[2022-03-26] MEDS: GLIPIZIDE 5MG TABLET NG SCH ×2 (06:13→17:14)
[2022-03-26] MEDS: INSULIN LISPRO 100 UNITS/ML SUBCUT SCH ×3 (06:14→17:16)
[2022-03-26] MEDS: LATUDA 80MG PO SCH ×2 (08:52→21:51)
[2022-03-26] MEDS: TAMSULOSIN HCL 0.4MG SR CAPSULE PO SCH (08:53)
[2022-03-26] MEDS: ASPIRIN 81MG TABLET PO SCH (08:53)
[2022-03-26] MEDS: FAMOTIDINE 20MG TABLET PO SCH ×2 (08:53→22:07)
[2022-03-26] MEDS: BENZTROPINE MESYLATE 1MG TABLET PO SCH ×2 (08:53→17:06)
[2022-03-26] MEDS: METOPROLOL TARTRATE 100MG TABLET PO SCH ×2 (08:54→22:08)
[2022-03-26] MEDS: MENTHOL/LANOLIN/CALAMINE/ZN OX OINT 71GM TOP SCH ×3 (08:55→17:06)
[2022-03-26] MEDS: NYSTATIN 100,000 UNITS/GM CREAM 15GM TOP SCH ×3 (08:55→17:06)
[2022-03-26] MEDS: ENOXAPARIN 40MG/0.4ML SYR SUBCUT SCH (08:55)
[2022-03-26] MEDS: LEVETIRACETAM 500MG/5ML CUP PO SCH ×2 (09:08→22:08)
[2022-03-26] MEDS: DOCUSATE SODIUM SUGAR FREE 100MG/10ML UDC NG SCH (09:08)
[2022-03-26] MEDS: INSULIN GLARGINE 100 UNITS/ML SUBCUT SCH ×2 (10:12→22:10)
[2022-03-26] MEDS: SODIUM CHLORIDE 0.9% 1,000 ML IV SCH ×2 (11:19→22:38)
[2022-03-26] MEDS: METHIMAZOLE 5MG TABLET PO SCH (12:27)
[2022-03-26 14:10] LABS: T4 FREE 1.27 ng/dL (0.76-1.46)
[2022-03-26] MEDS: ACETAMINOPHEN 650MG/20.3ML UDC PO PRN (18:02)
[2022-03-26] MEDS: ARIPIPRAZOLE 30 MG PO SCH (21:50)
[2022-03-26] MEDS: LATUDA 20MG PO SCH (21:51)
[2022-03-26] MEDS: TRAZODONE 150 MG PO SCH (21:52)
[2022-03-26] MEDS: HALOPERIDOL 5MG TABLET PO SCH (22:07)
[2022-03-26] MEDS: ATORVASTATIN CALCIUM 10MG TABLET PO SCH (22:07)
[2022-03-26] MEDS: SENNOSIDES 8.6MG TABLET PEG SCH (22:08)
[2022-03-27] VITALS (19 sets, daily range): BP systolic 88–144; BP diastolic 51–81
[2022-03-27] MEDS: BLOOD SUGAR DIAGNOSTIC STRIP TEST SCH ×4 (00:44→17:16)
[2022-03-27] MEDS: INSULIN LISPRO 100 UNITS/ML SUBCUT SCH ×4 (00:51→17:20)
[2022-03-27] MEDS: ALBUTEROL (0.083%) 2.5MG/3ML NEB HHN SCH ×2 (01:00→14:09)
[2022-03-27] MEDS: GUAIFENESIN 200MG/10ML SUGAR FREE UDC NG SCH ×6 (02:00→21:23)
[2022-03-27] MEDS: GLIPIZIDE 5MG TABLET NG SCH ×2 (06:01→17:17)
[2022-03-27] MEDS: VALPROATE SODIUM 250MG/5ML UDC PO SCH ×3 (06:07→21:23)
[2022-03-27] MEDS: LATUDA 80MG PO SCH ×2 (08:01→21:25)
[2022-03-27] MEDS: ASPIRIN 81MG TABLET PO SCH (08:12)
[2022-03-27] MEDS: FAMOTIDINE 20MG TABLET PO SCH ×2 (08:13→21:23)
[2022-03-27] MEDS: ENOXAPARIN 40MG/0.4ML SYR SUBCUT SCH (08:13)
[2022-03-27] MEDS: ACETAMINOPHEN 325MG TABLET PO PRN (08:14)
[2022-03-27] MEDS: BENZTROPINE MESYLATE 1MG TABLET PO SCH ×2 (08:14→17:16)
[2022-03-27] MEDS: TAMSULOSIN HCL 0.4MG SR CAPSULE PO SCH (08:14)
[2022-03-27] MEDS: LEVETIRACETAM 500MG/5ML CUP PO SCH ×2 (08:15→21:22)
[2022-03-27] MEDS: METOPROLOL TARTRATE 100MG TABLET PO SCH ×2 (08:15→21:24)
[2022-03-27] MEDS: DOCUSATE SODIUM SUGAR FREE 100MG/10ML UDC NG SCH (08:15)
[2022-03-27] MEDS: MENTHOL/LANOLIN/CALAMINE/ZN OX OINT 71GM TOP SCH ×3 (08:16→17:16)
[2022-03-27] MEDS: NYSTATIN 100,000 UNITS/GM CREAM 15GM TOP SCH ×3 (08:16→17:16)
[2022-03-27] MEDS: SODIUM CHLORIDE 0.9% 1,000 ML IV SCH (08:17)
[2022-03-27 08:20] LABS: CHLORIDE 108 mEq/L (98-107)
[2022-03-27] MEDS: METHIMAZOLE 5MG TABLET PO SCH (08:20)
[2022-03-27 09:12] LABS: BASOPHILS % 0.6 % (0.0-2.0); EOSINOPHILS % 0.4 % (0.0-5.0); HEMATOCRIT. 29.9 % (42.0-52.0); HEMOGLOBIN. 9.9 g/dL (14.0-18.0); LYMPHOCYTES % 14.4 % (20.0-50.0); MEAN CORPUSCULAR VOLUME 87.7 fL (80.0-94.0); MEAN PLATELET VOLUME 9.4 fl (7.4-10.4); NEUTROPHILS % 78.6 % (40.0-76.0); PLATELET 328 x1000/uL (130-400); RED BLOOD CELL COUNT 3.41 mill/uL (4.7-6.1); RED CELL DISTRIBUTION WIDTH 14.3 % (11.6-14.6)
[2022-03-27] MEDS: INSULIN GLARGINE 100 UNITS/ML SUBCUT SCH ×2 (12:53→21:28)
[2022-03-27] MEDS: SENNOSIDES 8.6MG TABLET PEG SCH (21:23)
[2022-03-27] MEDS: ACETAMINOPHEN 650MG/20.3ML UDC PO PRN (21:23)
[2022-03-27] MEDS: ATORVASTATIN CALCIUM 10MG TABLET PO SCH (21:24)
[2022-03-27] MEDS: TRAZODONE 150 MG PO SCH (21:26)
[2022-03-27] MEDS: LATUDA 20MG PO SCH (21:26)
[2022-03-27] MEDS: HALOPERIDOL 5MG TABLET PO SCH (21:30)
[2022-03-27] MEDS: ARIPIPRAZOLE 30 MG PO SCH (21:30)
[2022-03-28] VITALS (12 sets, daily range): BP systolic 104–145; BP diastolic 57–79
[2022-03-28] MEDS: BLOOD SUGAR DIAGNOSTIC STRIP TEST SCH ×5 (00:30→23:38)
[2022-03-28] MEDS: INSULIN LISPRO 100 UNITS/ML SUBCUT SCH ×5 (00:45→23:41)
[2022-03-28] MEDS: ALBUTEROL (0.083%) 2.5MG/3ML NEB HHN SCH ×3 (01:21→16:11)
[2022-03-28] MEDS: GUAIFENESIN 200MG/10ML SUGAR FREE UDC NG SCH ×6 (01:42→21:40)
[2022-03-28] MEDS: SODIUM CHLORIDE 0.9% 1,000 ML IV SCH ×2 (01:42→15:23)
[2022-03-28] MEDS: GLIPIZIDE 5MG TABLET NG SCH ×2 (05:10→20:09)
[2022-03-28] MEDS: VALPROATE SODIUM 250MG/5ML UDC PO SCH ×3 (05:10→21:36)
[2022-03-28] MEDS: ACETAMINOPHEN 650MG/20.3ML UDC PO PRN (05:12)
[2022-03-28 07:57] LABS: CHLORIDE 106 mEq/L (98-107)
[2022-03-28 09:36] LABS: EOSINOPHILS % 0.6 % (0.0-5.0); HEMOGLOBIN. 9.6 g/dL (14.0-18.0); LYMPHOCYTES % 18.7 % (20.0-50.0); MEAN CORPUSCULAR HEMOGLOBIN 29.1 pg (28.0-32.0); MEAN CORPUSCULAR VOLUME 88.1 fL (80.0-94.0); MEAN PLATELET VOLUME 9.6 fl (7.4-10.4); NEUTROPHILS % 73.7 % (40.0-76.0); PLATELET 279 x1000/uL (130-400); RED BLOOD CELL COUNT 3.29 mill/uL (4.7-6.1); RED CELL DISTRIBUTION WIDTH 14.4 % (11.6-14.6)
[2022-03-28] MEDS: DOCUSATE SODIUM SUGAR FREE 100MG/10ML UDC NG SCH (10:00)
[2022-03-28] MEDS: LEVETIRACETAM 500MG/5ML CUP PO SCH ×2 (10:00→21:36)
[2022-03-28] MEDS: INSULIN GLARGINE 100 UNITS/ML SUBCUT SCH ×2 (10:00→21:40)
[2022-03-28] MEDS: ASPIRIN 81MG TABLET PO SCH (10:04)
[2022-03-28] MEDS: BENZTROPINE MESYLATE 1MG TABLET PO SCH ×2 (10:05→20:09)
[2022-03-28] MEDS: ENOXAPARIN 40MG/0.4ML SYR SUBCUT SCH (10:05)
[2022-03-28] MEDS: METOPROLOL TARTRATE 100MG TABLET PO SCH ×2 (10:06→21:37)
[2022-03-28] MEDS: TAMSULOSIN HCL 0.4MG SR CAPSULE PO SCH (10:06)
[2022-03-28] MEDS: METHIMAZOLE 5MG TABLET PO SCH (10:11)
[2022-03-28] MEDS: LATUDA 80MG PO SCH ×2 (10:11→21:38)
[2022-03-28] MEDS: FAMOTIDINE 20MG TABLET PO SCH ×2 (10:11→21:36)
[2022-03-28] MEDS: MENTHOL/LANOLIN/CALAMINE/ZN OX OINT 71GM TOP SCH ×3 (10:14→17:00)
[2022-03-28] MEDS: NYSTATIN 100,000 UNITS/GM CREAM 15GM TOP SCH ×3 (10:14→17:00)
[2022-03-28] MEDS: ATORVASTATIN CALCIUM 10MG TABLET PO SCH (21:36)
[2022-03-28] MEDS: HALOPERIDOL 5MG TABLET PO SCH (21:36)
[2022-03-28] MEDS: SENNOSIDES 8.6MG TABLET PEG SCH (21:36)
[2022-03-28] MEDS: TRAZODONE 150 MG PO SCH (21:38)
[2022-03-28] MEDS: ARIPIPRAZOLE 30 MG PO SCH (21:38)
[2022-03-28] MEDS: LATUDA 20MG PO SCH (21:38)
[2022-03-29] VITALS (12 sets, daily range): BP systolic 99–132; BP diastolic 39–72
[2022-03-29] MEDS: ALBUTEROL (0.083%) 2.5MG/3ML NEB HHN SCH ×2 (00:03→16:13)
[2022-03-29] MEDS: GUAIFENESIN 200MG/10ML SUGAR FREE UDC NG SCH ×6 (02:38→21:40)
[2022-03-29] MEDS: SODIUM CHLORIDE 0.9% 1,000 ML IV SCH ×2 (04:23→17:53)
[2022-03-29] MEDS: VALPROATE SODIUM 250MG/5ML UDC PO SCH ×3 (05:17→21:40)
[2022-03-29] MEDS: GLIPIZIDE 5MG TABLET NG SCH ×2 (05:17→17:57)
[2022-03-29] MEDS: BLOOD SUGAR DIAGNOSTIC STRIP TEST SCH ×3 (05:18→18:01)
[2022-03-29] MEDS: INSULIN LISPRO 100 UNITS/ML SUBCUT SCH ×3 (05:18→17:55)
[2022-03-29] MEDS: IPRATROPIUM/ALBUTEROL 0.5-3(2.5)MG/3ML NEB HHN PRN (08:30)
[2022-03-29] MEDS: ENOXAPARIN 40MG/0.4ML SYR SUBCUT SCH (09:44)
[2022-03-29] MEDS: ASPIRIN 81MG TABLET PO SCH (09:45)
[2022-03-29] MEDS: TAMSULOSIN HCL 0.4MG SR CAPSULE PO SCH (09:45)
[2022-03-29] MEDS: LEVETIRACETAM 500MG/5ML CUP PO SCH ×2 (09:45→21:40)
[2022-03-29] MEDS: FAMOTIDINE 20MG TABLET PO SCH ×2 (09:46→21:53)
[2022-03-29] MEDS: METOPROLOL TARTRATE 100MG TABLET PO SCH ×2 (09:46→21:41)
[2022-03-29] MEDS: METHIMAZOLE 5MG TABLET PO SCH (09:46)
[2022-03-29] MEDS: BENZTROPINE MESYLATE 1MG TABLET PO SCH ×2 (09:46→18:01)
[2022-03-29] MEDS: MENTHOL/LANOLIN/CALAMINE/ZN OX OINT 71GM TOP SCH ×3 (09:46→17:54)
[2022-03-29] MEDS: NYSTATIN 100,000 UNITS/GM CREAM 15GM TOP SCH ×3 (09:47→17:54)
[2022-03-29] MEDS: LATUDA 80MG PO SCH ×2 (09:47→21:43)
[2022-03-29] MEDS: DOCUSATE SODIUM SUGAR FREE 100MG/10ML UDC NG SCH (09:47)
[2022-03-29] MEDS: INSULIN GLARGINE 100 UNITS/ML SUBCUT SCH ×2 (09:53→21:42)
[2022-03-29] MEDS: SENNOSIDES 8.6MG TABLET PEG SCH (21:00)
[2022-03-29] MEDS: HALOPERIDOL 5MG TABLET PO SCH (21:41)
[2022-03-29] MEDS: ATORVASTATIN CALCIUM 10MG TABLET PO SCH (21:41)
[2022-03-29] MEDS: LATUDA 20MG PO SCH (21:43)
[2022-03-29] MEDS: TRAZODONE 150 MG PO SCH (21:43)
[2022-03-29] MEDS: ARIPIPRAZOLE 30 MG PO SCH (21:44)
[2022-03-30] VITALS (12 sets, daily range): BP systolic 100–134; BP diastolic 45–82
[2022-03-30] MEDS: BLOOD SUGAR DIAGNOSTIC STRIP TEST SCH ×4 (00:16→16:51)
[2022-03-30] MEDS: INSULIN LISPRO 100 UNITS/ML SUBCUT SCH ×4 (00:21→17:20)
[2022-03-30] MEDS: ALBUTEROL (0.083%) 2.5MG/3ML NEB HHN SCH ×3 (00:41→17:22)
[2022-03-30] MEDS: GUAIFENESIN 200MG/10ML SUGAR FREE UDC NG SCH ×5 (02:38→17:18)
[2022-03-30] MEDS: GLIPIZIDE 5MG TABLET NG SCH ×2 (05:25→17:22)
[2022-03-30] MEDS: VALPROATE SODIUM 250MG/5ML UDC PO SCH ×2 (05:25→13:45)
[2022-03-30] MEDS: SODIUM CHLORIDE 0.9% 1,000 ML IV SCH (06:55)
[2022-03-30] MEDS: ENOXAPARIN 40MG/0.4ML SYR SUBCUT SCH (08:06)
[2022-03-30] MEDS: LEVETIRACETAM 500MG/5ML CUP PO SCH (08:07)
[2022-03-30] MEDS: ASPIRIN 81MG TABLET PO SCH (08:07)
[2022-03-30] MEDS: DOCUSATE SODIUM SUGAR FREE 100MG/10ML UDC NG SCH (08:07)
[2022-03-30] MEDS: METOPROLOL TARTRATE 100MG TABLET PO SCH (08:08)
[2022-03-30] MEDS: TAMSULOSIN HCL 0.4MG SR CAPSULE PO SCH (08:08)
[2022-03-30] MEDS: BENZTROPINE MESYLATE 1MG TABLET PO SCH ×2 (08:08→17:18)
[2022-03-30] MEDS: FAMOTIDINE 20MG TABLET PO SCH (08:08)
[2022-03-30] MEDS: MENTHOL/LANOLIN/CALAMINE/ZN OX OINT 71GM TOP SCH ×3 (08:09→17:27)
[2022-03-30] MEDS: NYSTATIN 100,000 UNITS/GM CREAM 15GM TOP SCH ×3 (08:09→17:27)
[2022-03-30] MEDS: LATUDA 80MG PO SCH (08:10)
[2022-03-30] MEDS: METHIMAZOLE 5MG TABLET PO SCH (08:17)
[2022-03-30] MEDS: INSULIN GLARGINE 100 UNITS/ML SUBCUT SCH (10:53)
== END 2022-03-30 20:06 | disposition home health service (06) | DRG 871 ==
LOC: ER 12:18 → 8WST 23:05 → ENRESERV 03-09 07:23 → 7EST 03-09 13:24 → MICUNO 03-14 20:00 → MICUSO 03-15 11:28 → MICUNO 03-16 19:29 → MICUSO 03-17 19:00 → MICUNO 03-22 11:00 → 5EST 03-26 19:00
PROVIDERS: ADMIT Hospitalist; ATTEND Hospitalist
PROC: 5A09457 Assistance with Respiratory Ventilation, 24-96 Consecutive Hours, Continuous Positive Airway Pressure (ICD-10-PCS; principal; 2022-03-18)
PROC: 4A00X4Z Measurement of Central Nervous Electrical Activity, External Approach (ICD-10-PCS; 2022-03-23)
DX: A41.89 Other specified sepsis (principal); G92.8 Other toxic encephalopathy; U07.1 COVID-19; J96.01 Acute respiratory failure with hypoxia; J12.82 Pneumonia due to coronavirus disease 2019; J69.0 Pneumonitis due to inhalation of food and vomit; I47.1 Supraventricular tachycardia; J98.11 Atelectasis; E11.9 Type 2 diabetes mellitus without complications; F31.9 Bipolar disorder, unspecified; F20.9 Schizophrenia, unspecified; I10 Essential (primary) hypertension; N40.0 Benign prostatic hyperplasia without lower urinary tract symptoms; R13.12 Dysphagia, oropharyngeal phase; G40.901 Epilepsy, unspecified, not intractable, with status epilepticus; E78.5 Hyperlipidemia, unspecified; E05.90 Thyrotoxicosis, unspecified without thyrotoxic crisis or storm; E87.6 Hypokalemia; D64.9 Anemia, unspecified; R16.0 Hepatomegaly, not elsewhere classified; R04.0 Epistaxis; F79 Unspecified intellectual disabilities
CPT/HCPCS: 36415; 36600; 71045; 71275; 76700; 80048; 80053; 80061; 80165; 80320; 81003; 82375; 82550; 82553; 82805; 82962; 83036; 83605; 83735; 84100; 84145; 84439; 84443; 84484; 85025; 85379; 87015; 87045; 87070; 87426; 87427; 87449; 92610; 93005; 93306; 93970; 94640; 94660; 94667; 95816; 97162; 97164; 97166; 97168; 97530; 97535; 99285; A6261; J0360; J0696; J1200; J1630; J1650; J1815; J1953; J2060; J2405; J2543; J3475; J3480; J3490; J7030; J7050; J7060; J7608; G0480

== ENCOUNTER 2022-04-06 11:00 | Inpatient (IN) | payer MEDICARE, MEDICAID ==
[~2022-04-06] VITALS: Ht 182.9 cm; Wt 57.6 kg
[2022-04-06] MEDS: AMPICILLIN SOD/SULBACTAM NA 3 G in SODIUM CHLORIDE 0.9% 100 ML IV SCH ×3 (00:44→18:33)
[~2022-04-06 11:00] MED LIST changes: +CLAR-44 MT; +PANT40TA51 PO
[2022-04-06] MEDS ORDERED: SODIUM CHLORIDE 0.9% 1000ML BAG (SEPSIS BOLUS) IV ONE (11:15)
[2022-04-06 12:18] LABS: CHLORIDE 102 mEq/L (98-107)
[2022-04-06 12:19] LABS: BASOPHILS % 0.4 % (0.0-2.0); EOSINOPHILS % 0.3 % (0.0-5.0); HEMOGLOBIN. 13.6 g/dL (14.0-18.0); LYMPHOCYTES % 9.3 % (20.0-50.0); MEAN CORPUSCULAR HEMOGLOBIN 29.2 pg (28.0-32.0); MEAN CORPUSCULAR VOLUME 89.9 fL (80.0-94.0); MEAN PLATELET VOLUME 8.6 fl (7.4-10.4); MONOCYTES % 4.3 % (2.0-8.0); NEUTROPHILS % 85.7 % (40.0-76.0); PLATELET 279 x1000/uL (130-400); RED BLOOD CELL COUNT 4.67 mill/uL (4.7-6.1); RED CELL DISTRIBUTION WIDTH 16.7 % (11.6-14.6)
[2022-04-06 12:27] LABS: BG BASE EXCESS -2.9 mmol/L (-2.0-2.0); BG CARBOXYHEMOGLOBIN 0.9 % (0.5-1.5); BG DEOXYHEMOGLOBIN 0.7 % (0.0-5.0); BG FRACTION INSPIRED OXYGEN 100; BG HCO3 ACT 22.2 mmol/L (22.0-26.0); BG METHEMOGLOBIN 0.2 % (0.0-1.5); BG OXYGEN SATURATION 99.3 % (92.0-98.5); BG OXYHEMOGLOBIN 98.2 % (94.0-97.0); BG PCO2 39.8 mmHg (35.0-45.0); BG PH 7.364 (7.350-7.450); BG PO2 200.7 mmHg (75.0-100.0); BG SAMPLE SITE RIGHT RADIAL; BG TOTAL HEMOGLOBIN 12.4 g/dL (12.0-18.0); BG VENT MODE MASK - NRB
[2022-04-06 12:38] LABS: PARTIAL THROMBOPLASTIN TIME 24.8 sec (23.4-31.0); PROTHROMBIN TIME 10.9 sec (9.6-11.0)
[2022-04-06 13:21] LABS: CLARITY URINE CLEAR (CLEAR); COLOR URINE YELLOW (YELLOW); KETONES URINE 4+ (NEGATIVE); LEUKOCYTE ESTERASE URINE NEGATIVE (NEGATIVE); NITRITE URINE NEGATIVE (NEGATIVE); OCCULT BLOOD URINE 2+ (NEGATIVE); PROTEIN URINE 1+ (NEGATIVE); UROBILINOGEN URINE 0.2 E.U./dL (0.2-1.0)
[2022-04-06] MEDS ORDERED: METOPROLOL TARTRATE 5MG/5ML VIAL IV NR (15:00)
[2022-04-06] MEDS: IPRATROPIUM BROMIDE (0.02%) 0.5MG/2.5ML NEB HHN SCH ×2 (15:30→21:51)
[2022-04-06 17:03] LABS: BG BASE EXCESS -4.3 mmol/L (-2.0-2.0); BG CARBOXYHEMOGLOBIN 0.4 % (0.5-1.5); BG FRACTION INSPIRED OXYGEN 70; BG METHEMOGLOBIN 0.5 % (0.0-1.5); BG OXYHEMOGLOBIN 98.1 % (94.0-97.0); BG PCO2 45.4 mmHg (35.0-45.0); BG PH 7.304 (7.350-7.450); BG PO2 169.4 mmHg (75.0-100.0); BG SAMPLE SITE RIGHT RADIAL; BG VENT MODE HIGH FLOW
[2022-04-06] MEDS ORDERED: METOPROLOL TARTRATE 5MG/5ML VIAL IV SCH (18:00)
[2022-04-06] MEDS ORDERED: DEXTROSE 50% WATER 50ML SYRINGE IV PRN (23:30)
[2022-04-07] VITALS (12 sets, daily range): BP systolic 103–135; BP diastolic 51–69
[2022-04-07] MEDS: IPRATROPIUM BROMIDE (0.02%) 0.5MG/2.5ML NEB HHN SCH ×4 (00:42→21:30)
[2022-04-07] MEDS: DEXT 5%/0.9% NACL 1,000 ML IV SCH ×2 (00:51→16:25)
[2022-04-07] MEDS: ACETYLCYSTEINE 100MG/ML 10% VIAL 4ML INH SCH ×2 (06:00→14:54)
[2022-04-07] MEDS: AMPICILLIN SOD/SULBACTAM NA 3 G in SODIUM CHLORIDE 0.9% 100 ML IV SCH ×4 (06:07→22:49)
[2022-04-07 06:57] LABS: BASOPHILS % 0.1 % (0.0-2.0); EOSINOPHILS % 1.1 % (0.0-5.0); HEMATOCRIT. 33.2 % (42.0-52.0); HEMOGLOBIN. 10.8 g/dL (14.0-18.0); LYMPHOCYTES % 22.8 % (20.0-50.0); MEAN CORPUSCULAR HEMOGLOBIN 29.5 pg (28.0-32.0); MEAN CORPUSCULAR VOLUME 90.7 fL (80.0-94.0); MEAN PLATELET VOLUME 8.7 fl (7.4-10.4); MONOCYTES % 10.6 % (2.0-8.0); NEUTROPHILS % 65.4 % (40.0-76.0); PLATELET 213 x1000/uL (130-400); RED BLOOD CELL COUNT 3.66 mill/uL (4.7-6.1); RED CELL DISTRIBUTION WIDTH 16.7 % (11.6-14.6)
[2022-04-07] MEDS: BLOOD SUGAR DIAGNOSTIC STRIP TEST SCH ×4 (07:30→20:39)
[2022-04-07 07:56] LABS: T4 FREE 1.23 ng/dL (0.76-1.46)
[2022-04-07 07:58] LABS: CHLORIDE 107 mEq/L (98-107)
[2022-04-07] MEDS: INSULIN LISPRO 100 UNITS/ML SUBCUT SCH ×4 (08:00→20:40)
[2022-04-07] MEDS: BENZTROPINE MESYLATE 2MG TABLET PO SCH ×2 (08:30→17:20)
[2022-04-07] MEDS: ARIPIPRAZOLE 5MG TABLET PO SCH (08:30)
[2022-04-07] MEDS: TAMSULOSIN HCL 0.4MG SR CAPSULE PO SCH (08:31)
[2022-04-07] MEDS: PANTOPRAZOLE 40MG DR TABLET PO SCH (08:31)
[2022-04-07] MEDS: FOLIC ACID 1MG TABLET PO SCH (08:31)
[2022-04-07 08:58] LABS: BG BASE EXCESS -1.6 mmol/L (-2.0-2.0); BG CARBOXYHEMOGLOBIN 1.1 % (0.5-1.5); BG DEOXYHEMOGLOBIN 8.6 % (0.0-5.0); BG FRACTION INSPIRED OXYGEN 50; BG HCO3 ACT 23.7 mmol/L (22.0-26.0); BG METHEMOGLOBIN 0.3 % (0.0-1.5); BG OXYGEN SATURATION 91.3 % (92.0-98.5); BG PCO2 42.5 mmHg (35.0-45.0); BG PH 7.365 (7.350-7.450); BG PO2 60.7 mmHg (75.0-100.0); BG SAMPLE SITE RIGHT BRACHIAL; BG TOTAL HEMOGLOBIN 11.7 g/dL (12.0-18.0); BG VENT MODE HIGH FLOW
[2022-04-07] MEDS: METOPROLOL TARTRATE 5MG/5ML VIAL IV PRN ×2 (10:45→10:47)
[2022-04-07] MEDS: VALPROATE SODIUM 750 MG in SODIUM CHLORIDE 0.9% 100 ML IV SCH (10:48)
[2022-04-07] MEDS: TRAZODONE HCL 50MG TABLET PO SCH (20:39)
[2022-04-07] MEDS: ATORVASTATIN CALCIUM 10MG TABLET PO SCH (20:39)
[2022-04-07] MEDS: VALPROATE SODIUM 1,000 MG in SODIUM CHLORIDE 0.9% 100 ML IV SCH (20:55)
[2022-04-07] MEDS ORDERED: DIVALPROEX SODIUM 500MG ER TABLET PO SCH (21:00)
[2022-04-08] VITALS (12 sets, daily range): BP systolic 123–144; BP diastolic 66–85
[2022-04-08] MEDS: ACETYLCYSTEINE 100MG/ML 10% VIAL 4ML INH SCH ×2 (00:33→10:00)
[2022-04-08] MEDS: IPRATROPIUM BROMIDE (0.02%) 0.5MG/2.5ML NEB HHN SCH ×4 (00:34→20:50)
[2022-04-08] MEDS: DEXT 5%/0.9% NACL 1,000 ML IV SCH ×2 (02:10→15:30)
[2022-04-08] MEDS: AMPICILLIN SOD/SULBACTAM NA 3 G in SODIUM CHLORIDE 0.9% 100 ML IV SCH ×4 (05:07→23:03)
[2022-04-08] MEDS: BLOOD SUGAR DIAGNOSTIC STRIP TEST SCH ×4 (07:30→21:10)
[2022-04-08] MEDS: INSULIN LISPRO 100 UNITS/ML SUBCUT SCH ×4 (08:00→21:10)
[2022-04-08] MEDS: FOLIC ACID 1MG TABLET PO SCH (08:49)
[2022-04-08] MEDS: PANTOPRAZOLE 40MG DR TABLET PO SCH (08:49)
[2022-04-08] MEDS: BENZTROPINE MESYLATE 2MG TABLET PO SCH ×2 (08:53→17:33)
[2022-04-08] MEDS: ARIPIPRAZOLE 5MG TABLET PO SCH (08:53)
[2022-04-08] MEDS: TAMSULOSIN HCL 0.4MG SR CAPSULE PO SCH (08:56)
[2022-04-08] MEDS: VALPROATE SODIUM 750 MG in SODIUM CHLORIDE 0.9% 100 ML IV SCH (09:46)
[2022-04-08] MEDS: METOPROLOL TARTRATE 5MG/5ML VIAL IV PRN ×2 (13:57→17:34)
[2022-04-08] MEDS ORDERED: MENTHOL/LANOLIN/CALAMINE/ZN OX OINT 71GM TOP PRN (17:00)
[2022-04-08] MEDS: DOCUSATE SODIUM 100MG CAPSULE PO SCH (17:26)
[2022-04-08] MEDS ORDERED: IOHEXOL-350 100 ML BOTTLE ONE (20:19)
[2022-04-08] MEDS: TRAZODONE HCL 50MG TABLET PO SCH (20:41)
[2022-04-08] MEDS: ATORVASTATIN CALCIUM 10MG TABLET PO SCH (20:41)
[2022-04-08] MEDS: LORAZEPAM 1MG TABLET PO SCH (20:42)
[2022-04-08] MEDS: VALPROATE SODIUM 1,000 MG in SODIUM CHLORIDE 0.9% 100 ML IV SCH (20:42)
[2022-04-08] MEDS: VALPROATE SODIUM 250MG/5ML UDC PO SCH (23:03)
[2022-04-09] VITALS (12 sets, daily range): BP systolic 124–139; BP diastolic 68–81
[2022-04-09] MEDS: ACETYLCYSTEINE 100MG/ML 10% VIAL 4ML INH SCH ×3 (01:39→14:12)
[2022-04-09] MEDS: IPRATROPIUM BROMIDE (0.02%) 0.5MG/2.5ML NEB HHN SCH ×4 (01:39→19:48)
[2022-04-09] MEDS: DEXT 5%/0.9% NACL 1,000 ML IV SCH ×2 (04:22→18:11)
[2022-04-09] MEDS: AMPICILLIN SOD/SULBACTAM NA 3 G in SODIUM CHLORIDE 0.9% 100 ML IV SCH ×4 (05:00→23:01)
[2022-04-09] MEDS: IPRATROPIUM/ALBUTEROL 0.5-3(2.5)MG/3ML NEB HHN PRN (07:50)
[2022-04-09] MEDS: INSULIN LISPRO 100 UNITS/ML SUBCUT SCH ×4 (08:00→21:33)
[2022-04-09] MEDS: BLOOD SUGAR DIAGNOSTIC STRIP TEST SCH ×4 (08:09→21:33)
[2022-04-09] MEDS: FOLIC ACID 1MG TABLET PO SCH (08:10)
[2022-04-09] MEDS: VALPROATE SODIUM 250MG/5ML UDC PO SCH ×3 (08:10→21:32)
[2022-04-09] MEDS: DOCUSATE SODIUM 100MG CAPSULE PO SCH ×2 (08:10→17:40)
[2022-04-09] MEDS: BENZTROPINE MESYLATE 2MG TABLET PO SCH ×2 (08:10→18:10)
[2022-04-09] MEDS: FAMOTIDINE 20MG TABLET PO SCH ×2 (08:10→21:32)
[2022-04-09] MEDS: TAMSULOSIN HCL 0.4MG SR CAPSULE PO SCH (08:10)
[2022-04-09 08:11] LABS: BG BASE EXCESS 9.8 mmol/L (-2.0-2.0); BG CARBOXYHEMOGLOBIN 1.3 % (0.5-1.5); BG DEOXYHEMOGLOBIN 8.3 % (0.0-5.0); BG FRACTION INSPIRED OXYGEN 21; BG HCO3 ACT 34.4 mmol/L (22.0-26.0); BG METHEMOGLOBIN 0.2 % (0.0-1.5); BG OXYGEN SATURATION 91.6 % (92.0-98.5); BG OXYHEMOGLOBIN 90.2 % (94.0-97.0); BG PCO2 46.5 mmHg (35.0-45.0); BG PH 7.487 (7.350-7.450); BG PO2 57.4 mmHg (75.0-100.0); BG SAMPLE SITE RIGHT RADIAL; BG VENT MODE ROOM AIR
[2022-04-09] MEDS: LORAZEPAM 1MG TABLET PO SCH ×3 (08:11→17:41)
[2022-04-09] MEDS: ARIPIPRAZOLE 5MG TABLET PO SCH (08:11)
[2022-04-09] MEDS: ATORVASTATIN CALCIUM 10MG TABLET PO SCH (21:32)
[2022-04-09] MEDS: TRAZODONE HCL 50MG TABLET PO SCH (21:32)
[2022-04-10] VITALS (11 sets, daily range): BP systolic 111–158; BP diastolic 62–81
[2022-04-10] MEDS: IPRATROPIUM BROMIDE (0.02%) 0.5MG/2.5ML NEB HHN SCH ×3 (01:14→14:54)
[2022-04-10] MEDS: ACETYLCYSTEINE 100MG/ML 10% VIAL 4ML INH SCH ×2 (01:14→08:44)
[2022-04-10] MEDS: AMPICILLIN SOD/SULBACTAM NA 3 G in SODIUM CHLORIDE 0.9% 100 ML IV SCH ×3 (05:33→17:32)
[2022-04-10] MEDS: DEXT 5%/0.9% NACL 1,000 ML IV SCH (07:30)
[2022-04-10] MEDS: BLOOD SUGAR DIAGNOSTIC STRIP TEST SCH ×3 (07:38→16:46)
[2022-04-10] MEDS: INSULIN LISPRO 100 UNITS/ML SUBCUT SCH ×3 (08:00→17:30)
[2022-04-10] MEDS: IPRATROPIUM/ALBUTEROL 0.5-3(2.5)MG/3ML NEB HHN PRN (08:44)
[2022-04-10] MEDS: TAMSULOSIN HCL 0.4MG SR CAPSULE PO SCH (09:00)
[2022-04-10] MEDS: BENZTROPINE MESYLATE 2MG TABLET PO SCH ×2 (09:00→17:21)
[2022-04-10] MEDS: FAMOTIDINE 20MG TABLET PO SCH (09:00)
[2022-04-10] MEDS: VALPROATE SODIUM 250MG/5ML UDC PO SCH ×2 (09:00→17:24)
[2022-04-10] MEDS: LORAZEPAM 1MG TABLET PO SCH ×3 (09:00→17:21)
[2022-04-10] MEDS: FOLIC ACID 1MG TABLET PO SCH (09:00)
[2022-04-10] MEDS: ARIPIPRAZOLE 5MG TABLET PO SCH (09:00)
[2022-04-10] MEDS: DOCUSATE SODIUM 100MG CAPSULE PO SCH ×2 (09:00→13:08)
[2022-04-10] MEDS ORDERED: ENOXAPARIN 40MG/0.4ML SYR SUBCUT SCH (11:07)
[2022-04-10] MEDS ORDERED: HALOPERIDOL 5MG TABLET PO NR (12:15)
[2022-04-10] MEDS ORDERED: AMPICILLIN SOD/SULBACTAM NA 3 G in SODIUM CHLORIDE 0.9% 100 ML IV SCH (18:00)
== END 2022-04-10 20:24 | DRG 177 ==
LOC: ER 11:32 → MICUSO 13:27 → EDBEDREQ 13:31 → EDBEDREQTM 13:31 → 5EST 04-07 00:06
PROVIDERS: ADMIT Internal Medicine; ATTEND Internal Medicine
PROC: 5A0935A Assistance with Respiratory Ventilation, Less than 24 Consecutive Hours, High Flow/Velocity Cannula (ICD-10-PCS; principal; 2022-04-06)
PROC: 5A0935A Assistance with Respiratory Ventilation, Less than 24 Consecutive Hours, High Flow/Velocity Cannula (ICD-10-PCS; 2022-04-06)
PROC: 5A0945A Assistance with Respiratory Ventilation, 24-96 Consecutive Hours, High Flow/Velocity Cannula (ICD-10-PCS; 2022-04-07)
DX: J69.0 Pneumonitis due to inhalation of food and vomit (principal); J96.01 Acute respiratory failure with hypoxia; G93.40 Encephalopathy, unspecified; J44.0 Chronic obstructive pulmonary disease with (acute) lower respiratory infection; Z20.822 Contact with and (suspected) exposure to COVID-19; R13.12 Dysphagia, oropharyngeal phase; J44.9 Chronic obstructive pulmonary disease, unspecified; I10 Essential (primary) hypertension; G40.909 Epilepsy, unspecified, not intractable, without status epilepticus; F31.9 Bipolar disorder, unspecified; F20.9 Schizophrenia, unspecified; E78.5 Hyperlipidemia, unspecified; E11.9 Type 2 diabetes mellitus without complications; D64.9 Anemia, unspecified; R62.50 Unspecified lack of expected normal physiological development in childhood
CPT/HCPCS: 36415; 36600; 71045; 71275; 80048; 80053; 80165; 81003; 82375; 82805; 82962; 83605; 83880; 84145; 84439; 84443; 84481; 84484; 85025; 87106; 87426; 87804; 92610; 93005; 94640; 97162; 97530; 99291; C9803; J0295; J1630; J1650; J1815; J3490; J7030; J7042; J7050; J7608; Q9967

== ENCOUNTER 2022-04-17 20:56 | Inpatient (IN) | payer MEDICARE, MEDICAID ==
[~2022-04-17] VITALS: Ht 165.1 cm; Wt 51.7 kg
[2022-04-17] MEDS ORDERED: SODIUM CHLORIDE 0.9% 1000ML BAG (SEPSIS BOLUS) IV ONE (21:30)
[2022-04-17] MEDS ORDERED: ACETAMINOPHEN 650MG SUPP PR ONE (22:45)
[2022-04-17 23:03] LABS: BASOPHILS % 0.2 % (0.0-2.0); EOSINOPHILS % 0.1 % (0.0-5.0); HEMATOCRIT. 36.4 % (42.0-52.0); LYMPHOCYTES % 10.7 % (20.0-50.0); MEAN CORPUSCULAR HEMOGLOBIN 29.5 pg (28.0-32.0); MEAN CORPUSCULAR VOLUME 89.4 fL (80.0-94.0); MEAN PLATELET VOLUME 8.3 fl (7.4-10.4); MONOCYTES % 5.1 % (2.0-8.0); NEUTROPHILS % 83.9 % (40.0-76.0); PLATELET 223 x1000/uL (130-400); RED BLOOD CELL COUNT 4.07 mill/uL (4.7-6.1); RED CELL DISTRIBUTION WIDTH 16.4 % (11.6-14.6)
[2022-04-17 23:09] LABS: CHLORIDE 102 mEq/L (98-107)
[2022-04-17 23:12] LABS: INR 1.1; PROTHROMBIN TIME 11.3 sec (9.6-11.0)
[2022-04-17] MEDS ORDERED: AZITHROMYCIN 500MG/250ML 250 ML IV ONE (23:45)
[2022-04-17] MEDS ORDERED: CEFTRIAXONE 2 G PREMIX 50 ML IV ONE (23:45)
[2022-04-18] MEDS ORDERED: CEFTRIAXONE 2 G PREMIX 50 ML IV NR (00:45)
[2022-04-18] MEDS ORDERED: ACETAMINOPHEN 650MG SUPP PR NR (00:45)
[2022-04-18] MEDS ORDERED: ACETAMINOPHEN 325MG TABLET PO PRN (09:15)
[2022-04-18] MEDS ORDERED: ONDANSETRON HCL 4MG/2ML INJ IV PRN (09:15)
[2022-04-18] MEDS: VALPROATE SODIUM 250MG/5ML UDC PO SCH ×3 (10:29→22:28)
[2022-04-18] MEDS ORDERED: IPRATROPIUM/ALBUTEROL 0.5-3(2.5)MG/3ML NEB HHN SCH (12:00)
[2022-04-18 17:14] LABS: CLARITY URINE CLEAR (CLEAR); COLOR URINE YELLOW (YELLOW); KETONES URINE 4+ (NEGATIVE); LEUKOCYTE ESTERASE URINE 2+ (NEGATIVE); NITRITE URINE NEGATIVE (NEGATIVE); OCCULT BLOOD URINE 2+ (NEGATIVE); PH URINE 5.5 (4.5-8.0); PROTEIN URINE TRACE (NEGATIVE); SPECIFIC GRAVITY URINE 1.022 (1.005-1.030); UROBILINOGEN URINE 0.2 E.U./dL (0.2-1.0)
[2022-04-18] MEDS ORDERED: CEFTRIAXONE 1 G PREMIX 50 ML IV SCH (21:00)
[2022-04-19] MEDS ORDERED: DEXTROSE 50% WATER 50ML SYRINGE IV PRN (09:30)
[2022-04-19] MEDS: VALPROATE SODIUM 250MG/5ML UDC PO SCH ×3 (10:52→21:59)
[2022-04-19] MEDS: LORAZEPAM 1MG TABLET PO PRN ×2 (10:53→18:50)
[2022-04-19] MEDS: BLOOD SUGAR DIAGNOSTIC STRIP TEST SCH ×3 (11:30→21:00)
[2022-04-19 13:10] VITALS: BP 142/89
[2022-04-19] MEDS: INSULIN LISPRO 100 UNITS/ML SUBCUT SCH ×3 (13:51→23:18)
[2022-04-19 14:00] VITALS: BP 142/80
[2022-04-19] MEDS ORDERED: TEMAZEPAM 15MG CAPSULE PO PRN (15:30)
[2022-04-19] MEDS ORDERED: CLOTRIMAZOLE 1% SOLUTION 10ML TOP ONE (15:30)
[2022-04-19 16:00] VITALS: BP 138/78
[2022-04-19 16:31] LABS: BASOPHILS % 0.4 % (0.0-2.0); EOSINOPHILS % 0.1 % (0.0-5.0); HEMATOCRIT. 41.7 % (42.0-52.0); HEMOGLOBIN. 13.9 g/dL (14.0-18.0); LYMPHOCYTES % 11.2 % (20.0-50.0); MEAN CORPUSCULAR HEMOGLOBIN 29.5 pg (28.0-32.0); MEAN CORPUSCULAR VOLUME 88.5 fL (80.0-94.0); MEAN PLATELET VOLUME 8.4 fl (7.4-10.4); MONOCYTES % 6.6 % (2.0-8.0); NEUTROPHILS % 81.7 % (40.0-76.0); PLATELET 315 x1000/uL (130-400); RED BLOOD CELL COUNT 4.72 mill/uL (4.7-6.1)
[2022-04-19 16:43] LABS: CHLORIDE 100 mEq/L (98-107)
[2022-04-19] MEDS ORDERED: CLARITHROMYCIN 500MG TABLET PO SCH (17:00)
[2022-04-19] MEDS ORDERED: ERGOCALCIFEROL 50000UNITS CAPSULE PO SCH (17:00)
[2022-04-19] MEDS ORDERED: ASPIRIN 81MG EC TABLET PO NR (17:17)
[2022-04-19] MEDS ORDERED: LEVE500T19 PO (17:55)
[2022-04-19] MEDS ORDERED: LEVE500T98 PO (17:55)
[2022-04-19] MEDS ORDERED: LURA20TA PO (17:56)
[2022-04-19] MEDS ORDERED: HYDR50TA54 PO (17:57)
[2022-04-19] MEDS ORDERED: HALO10TA13 PO (17:59)
[2022-04-19 18:00] VITALS: BP 152/109
[2022-04-19] MEDS ORDERED: ATOR10TA PO (18:01)
[2022-04-19] MEDS ORDERED: LURA80TA2 PO (18:04)
[2022-04-19] MEDS ORDERED: METH-371 PO (18:05)
[2022-04-19] MEDS: CEFTRIAXONE 1,000 MG in DEXTROSE 5% WATER 50 ML IV SCH (18:27)
[2022-04-19] MEDS: BENZTROPINE MESYLATE 2MG TABLET PO SCH (19:13)
[2022-04-19] MEDS: HYDROXYZINE 25MG TABLET PO SCH (19:14)
[2022-04-19 20:00] VITALS: BP 127/99
[2022-04-19] MEDS ORDERED: ARIPIPRAZOLE 5MG TABLET PO SCH (20:00)
[2022-04-19] MEDS ORDERED: HALOPERIDOL 5MG TABLET PO ONE (21:00)
[2022-04-19] MEDS ORDERED: ATORVASTATIN CALCIUM 10MG TABLET PO SCH (21:00)
[2022-04-19] MEDS ORDERED: SITA1TAB6 MT (21:10)
[2022-04-19] MEDS ORDERED: EMPA10TA MT (21:10)
[2022-04-19] MEDS: ARIPIPRAZOLE 5MG TABLET PO SCH (21:58)
[2022-04-19] MEDS: TRAZODONE HCL 50MG TABLET PO SCH (21:59)
[2022-04-19] MEDS: CHOLECALCIFEROL (VIT D3) 400 UNIT TABLET PO SCH (22:00)
[2022-04-19] MEDS: HALOPERIDOL 5MG TABLET PO SCH (22:00)
[2022-04-20] VITALS (12 sets, daily range): BP systolic 90–129; BP diastolic 50–93
[2022-04-20] MEDS: LORAZEPAM 1MG TABLET PO PRN ×4 (02:50→21:09)
[2022-04-20] MEDS ORDERED: PANTOPRAZOLE 40MG DR TABLET PO SCH (06:30)
[2022-04-20] MEDS: BLOOD SUGAR DIAGNOSTIC STRIP TEST SCH ×4 (07:30→21:10)
[2022-04-20] MEDS ORDERED: TAMSULOSIN HCL 0.4MG SR CAPSULE PO SCH (09:00)
[2022-04-20] MEDS ORDERED: ERGOCALCIFEROL 50000UNITS CAPSULE PO SCH (09:00)
[2022-04-20] MEDS ORDERED: FOLIC ACID 1MG TABLET PO SCH ×2 (09:00)
[2022-04-20] MEDS: BENZTROPINE MESYLATE 2MG TABLET PO SCH ×2 (09:00→16:56)
[2022-04-20] MEDS ORDERED: ASPIRIN 81MG TABLET PO SCH (09:00)
[2022-04-20] MEDS ORDERED: POTASSIUM CHLORIDE 20MEQ TABLET SR PO NR (09:30)
[2022-04-20] MEDS: HYDROXYZINE 25MG TABLET PO SCH ×2 (10:10→16:55)
[2022-04-20] MEDS: VALPROATE SODIUM 250MG/5ML UDC PO SCH ×3 (10:12→21:09)
[2022-04-20] MEDS: INSULIN LISPRO 100 UNITS/ML SUBCUT SCH ×4 (10:24→21:00)
[2022-04-20] MEDS ORDERED: GUAI600T26 MT (12:49)
[2022-04-20] MEDS ORDERED: LEVO750T68 MT (12:49)
[2022-04-20] MEDS ORDERED: IPRA3AMP9 NEB (12:55)
[2022-04-20] MEDS: IPRATROPIUM BROMIDE (0.02%) 0.5MG/2.5ML NEB HHN SCH ×3 (13:33→20:03)
[2022-04-20] MEDS: CEFTRIAXONE 1,000 MG in DEXTROSE 5% WATER 50 ML IV SCH (17:42)
[2022-04-20] MEDS: TRAZODONE HCL 50MG TABLET PO SCH (21:09)
[2022-04-20] MEDS: HALOPERIDOL 5MG TABLET PO SCH (21:10)
[2022-04-20] MEDS: ARIPIPRAZOLE 5MG TABLET PO SCH (21:10)
[2022-04-20] MEDS: CHOLECALCIFEROL (VIT D3) 400 UNIT TABLET PO SCH (21:30)
[2022-04-21] MEDS: IPRATROPIUM BROMIDE (0.02%) 0.5MG/2.5ML NEB HHN SCH (00:01)
[2022-04-23] MEDS ORDERED: ATORVASTATIN CALCIUM 10MG TABLET PO SCH (20:00)
== END 2022-04-21 06:06 | disposition home health service (06) | DRG 871 ==
LOC: ER 21:06 → EDBEDREQ 04-18 01:05 → EDBEDREQTM 04-18 01:05 → EDBEDREQSVC 04-19 00:58 → MICUSO 04-19 01:28 → 5EST 04-19 14:29
PROVIDERS: ADMIT Internal Medicine; ATTEND Internal Medicine
DX: A41.9 Sepsis, unspecified organism (principal); E43 Unspecified severe protein-calorie malnutrition; N39.0 Urinary tract infection, site not specified; Z68.1 Body mass index [BMI] 19.9 or less, adult; Z20.822 Contact with and (suspected) exposure to COVID-19; E11.9 Type 2 diabetes mellitus without complications; D64.9 Anemia, unspecified; G40.909 Epilepsy, unspecified, not intractable, without status epilepticus; F20.9 Schizophrenia, unspecified; F31.9 Bipolar disorder, unspecified; Z87.01 Personal history of pneumonia (recurrent)
CPT/HCPCS: 36415; 71045; 80048; 80053; 81001; 82962; 83605; 83615; 84145; 84484; 85025; 85384; 86141; 87077; 87106; 87186; 87426; 87804; 93005; 97162; 99285; A6261; C9803; J0456; J0696; J1630; J1815; J7030; J7060